=== PATIENT | female | born 1985 | race African-American/Black ===

== ENCOUNTER 2016-08-18 02:42 | Emergency (ER) | payer OTHER ==
[2016-08-18 03:45] VITALS: BP 128/85; PULSE 71; TEMP 97.9; BMI 37.9
[2016-08-18] MEDS ORDERED: ACETAMINOPHEN/CAFFEINE/BUTALBITAL 1 TAB PO ONE (04:05)
[2016-08-18] MEDS ORDERED: METOCLOPRAMIDE HCL 10 MG TABLET (FP) PO ONE ×2 (04:05→04:14)
[2016-08-18] MEDS ORDERED: ACETAMINOPHEN/CAFFEINE/BUTALBITAL 1 TAB ONE (04:13)
--- NOTE | 2016-08-18 04:25 | PDOC ---
[id number] 100 08/18/16 03:42 08/18/16 03:42 08/18/16 03:42 08/18/16 03:42 08/18/16 03:42 Medical Decision Making - Medical Decision Making 08/18/16 04:25 agree with care from RECORD LABEL INTERN Hussein *DC/Admit/Observation/Transfer Diagnosis at time of Disposition: Migraine - Discharge Dispostion Disposition: HOME Condition at time of disposition: Good - Prescriptions Prescriptions: Butalb/Acetaminophen/Caffeine [Fioricet 50-300-40 mg Capsule] 1 - 2 each PO Q4H PRN #30 capsule PRN Reason: SEVERE HEADACHE - Referrals Referrals: Sharon Dominguez [Primary Care Provider] - - Patient Instructions Printed Discharge Instructions: Migraine -- Adult Additional Instructions: FOLLOW UP WITH YOUR PRIMARY CARE PROVIDER FOR FURTHER EVALUATION. YOU SHOULD SEE A NEUROLOGIST AT SOME POINT FOR YOUR SYMPTOMS RELATED TO YOUR HISTORY OF TRAUMA. TAKE MEDICATIONS PRESCRIBED. RETURN IF SYMPTOMS WORSEN FOR FURTHER EVALUATION. Print Language: GIBRALTARIAN
--- NOTE | 2016-08-18 04:49 | PDOC ---
History of Present Illness - General Chief Complaint: Migraine Headache Stated Complaint: NECK PAIN Time Seen by Provider: 08/18/16 03:34 History Source: Patient Exam Limitations: No Limitations - History of Present Illness Initial Comments: 08/18/16 04:44 31yo Female patient presents to ED c/o migraine h/a 05/08. Patient reports history of recurrent h/a. She reports being evaluated and treated at [facility] earlier yesterday and given inj of Toradol. She reports she was also seen there the day before yesterday for same complaints. Denies n/v/d, fever, cough, congestion, neck pain, CP, Abd pain, Back pain, diff breathing, or any other complaints at this time. Timing/Duration: reports: other (2 days.) Severity: Yes: severe Episode Description: Associated photophobia. Associated Symptoms: denies: denies symptoms, confusion, fatigue, fever/chills, insomnia, loss of consciousness, muscle spasms, nausea/vomiting, numbness in legs/feet, paresthesia, ringing in ears, seizures, sleepy, slurred speech, tingling in legs/feet, trouble walking, vision changes, weakness, other Past History - Travel Traveled outside of the country in the last 30 days: No Close contact w/someone who was outside of country & ill: No - Past Medical History Allergies/Adverse Reactions: Allergies Allergy/AdvReac Type Severity Reaction Status Date / Time No Known Allergies Allergy Verified 08/18/16 03:44 Home Medications: Ambulatory Orders Topiramate [Topiramate ER] 25 mg PO DAILY 03/08/16 Butalb/Acetaminophen/Caffeine [Fioricet 50-300-40 mg Capsule] 1 - 2 each PO Q4H PRN #30 capsule 08/18/16 Sertraline HCl [Zoloft] 25 mg PO DAILY 08/18/16 Psychiatric Problems: Yes (DEPRESSION,ANXIETY) Suicide Attempt (Hx): No - Psycho/Social/Smoking Cessation Hx Anxiety: No Suicidal Ideation: No Smoking History: Current some day smoker Have you smoked in the past 12 months: Yes Number of Cigarettes Smoked Daily: 4 Information on smoking cessation initiated: No 'Breaking Loose' booklet given: 03/08/16 Hx Alcohol Use: No Drug/Substance Use Hx: No Substance Use Type: None Neuro Specific PMHX - Complaint Specific PMHX Glaucoma: No Herniated Disk: No Laminectomy: No Migraine: Yes Multiple Sclerosis: No Neuropathy: No TIA: No Review of Systems - Review of Systems Constitutional: No: Chills, Fever, Malaise, Weakness HEENTM: No: Eye Pain, Blurred Vision, Double Vision, Nose Congestion Respiratory: No: Cough, Shortness of Breath, Wheezing Cardiac (ROS): No: Chest Pain, Palpitations, Chest Tightness ABD/GI: No: Diarrhea, Nausea, Poor Appetite, Poor Fluid Intake, Vomiting : No: Dysuria, Discharge, Frequency, Hematuria, Pain, Urgency Musculoskeletal: No: Back Pain Integumentary: No: Bruising, Rash Neurological: Yes: Headache. No: Numbness, Paresthesia, Seizure, Tingling, Tremors, Weakness, Ataxia *Physical Exam - Vital Signs Last Vital Signs Temp Pulse Resp BP Pulse Ox 97.9 F 71 14 128/85 100 08/18/16 03:42 08/18/16 03:42 08/18/16 03:42 08/18/16 03:42 08/18/16 03:42 - Physical Exam General Appearance: Yes: Nourished, Appropriately Dressed. No: Apparent Distress, Mild Distress, Moderate Distress, Severe Distress HEENT: positive: EOMI, DELMA, Normal ENT Inspection, Normal Voice, Symmetrical, TMs Normal, Pharynx Normal. negative: Nasal Congestion, Rhinorrhea, TM Bulging , TM Dull, TM Erythema Neck: positive: Trachea midline, Supple. negative: Stridor, Lymphadenopathy (R) , Lymphadenopathy (L) Respiratory/Chest: positive: Lungs Clear, Normal Breath Sounds. negative: Respiratory Distress, Accessory Muscle Use, Labored Respiration, Rapid RR Cardiovascular: positive: Regular Rhythm, Regular Rate. negative: Edema, JVD, Murmur Gastrointestinal/Abdominal: positive: Normal Bowel Sounds, Soft. negative: Distended, Guarding, Rebound, Tenderness Lymphatic: negative: Adenopathy Musculoskeletal: positive: Normal Inspection. negative: CVA Tenderness Extremity: positive: Normal Capillary Refill, Normal Inspection, Normal Range of Motion. 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, Fully Oriented, Alert, Normal Mood/ Affect, Normal Response, Motor Strength 5/5 *DC/Admit/Observation/Transfer Diagnosis at time of Disposition: Migraine headache Qualifiers: Migraine type: without aura Status migrainosus presence: without status migrainosus Intractability: not intractable Qualified Code(s): G43.009 - Migraine without aura, not intractable, without status migrainosus - Discharge Dispostion Disposition: HOME Condition at time of disposition: Good Admit: No - Prescriptions Prescriptions: Butalb/Acetaminophen/Caffeine [Fioricet 50-300-40 mg Capsule] 1 - 2 each PO Q4H PRN #30 capsule PRN Reason: SEVERE HEADACHE - Patient Instructions Printed Discharge Instructions: Migraine -- Adult Additional Instructions: FOLLOW UP WITH YOUR PRIMARY CARE PROVIDER FOR FURTHER EVALUATION. YOU SHOULD SEE A NEUROLOGIST AT SOME POINT FOR YOUR SYMPTOMS RELATED TO YOUR HISTORY OF TRAUMA. TAKE MEDICATIONS PRESCRIBED. RETURN IF SYMPTOMS WORSEN FOR FURTHER EVALUATION. Print Language: GERMAN
== END 2016-08-18 06:01 | disposition home or self-care (01) ==
LOC: JER 02:42
DX: G43.009 Migraine without aura, not intractable, without status migrainosus (principal); F41.8 Other specified anxiety disorders; F17.210 Nicotine dependence, cigarettes, uncomplicated
CPT/HCPCS: 99282-25

== ENCOUNTER 2017-02-04 21:41 | Emergency (ER) | payer OTHER ==
[2017-02-04 21:52] VITALS: BMI 36.6
--- NOTE | 2017-02-04 22:16 | PDOC ---
History of Present Illness - General History Source: Patient Exam Limitations: No Limitations - History of Present Illness Initial Comments: 02/04/17 22:15 Patient is a 31 year old female with medical history significant for HTN, depression, anxiety, LEDEZMA and dizziness presenting with various complaints regarding her brain burning and shifting and of having an abnormal taste she describes as pus coming from her brain. Also complains of hair loss and scabs forming on the back of her head from the pus leaking from her brain. Patient has had numerous visits to the ED with similar complaints with normal CT scans. She claims she presented to a hospital in [place] 1 week ago and had a normal CT and labwork. 02/04/17 23:17 <Bear Cruz - Last Filed: 02/04/17 23:55> <Maria Elena Dow - Last Filed: 02/05/17 06:00> - General Chief Complaint: Migraine Headache Stated Complaint: MIGRAINE HEADACHE Time Seen by Provider: 02/04/17 22:12 Past History - Past Medical History Psychiatric Problems: Yes (DEPRESSION,ANXIETY) Suicide Attempt (Hx): No - Psycho/Social/Smoking Cessation Hx Anxiety: No Suicidal Ideation: No Smoking History: Never smoked Have you smoked in the past 12 months: Yes Number of Cigarettes Smoked Daily: 3 'Breaking Loose' booklet given: 03/08/16 Hx Alcohol Use: No Drug/Substance Use Hx: No Substance Use Type: None <Bear Cruz - Last Filed: 02/04/17 23:55> <Maria Elena Dow - Last Filed: 02/05/17 06:00> - Past Medical History Allergies/Adverse Reactions: Allergies Allergy/AdvReac Type Severity Reaction Status Date / Time No Known Allergies Allergy Verified 02/04/17 21:52 Home Medications: Ambulatory Orders Topiramate [Topiramate ER] 25 mg PO DAILY 03/08/16 Butalb/Acetaminophen/Caffeine [Fioricet 50-300-40 mg Capsule] 1 - 2 each PO Q4H PRN #30 capsule 08/18/16 Sertraline HCl [Zoloft] 25 mg PO DAILY 08/18/16 *Physical Exam - Vital Signs Last Vital Signs Temp Pulse Resp BP Pulse Ox 98.3 F 79 18 111/76 99 02/04/17 21:47 02/04/17 21:47 02/04/17 21:47 02/04/17 21:47 02/04/17 21:47 - Physical Exam 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, Fully Oriented, Alert, Normal Mood/ Affect, Motor Strength 5/5, Finger to Nose (normal), Babinski (downward), Other (Brudzinski(-), Kernig(-), Rhomberg(-), Pronator drift(-)) Deep Tendon Reflexes: Knee (L): 2+, Knee (R): 2+, Bicep (L): 2+, Bicep (R): 2+, Tricep (L): 1+, Tricep (R): 2+ <Bear Cruz - Last Filed: 02/04/17 23:55> - Vital Signs Last Vital Signs Temp Pulse Resp BP Pulse Ox 98.3 F 79 18 111/76 99 02/04/17 21:47 02/04/17 21:47 02/04/17 21:47 02/04/17 21:47 02/04/17 23:13 <Maria Elena Dow - Last Filed: 02/05/17 06:00> ED Treatment Course - LABORATORY CBC & Chemistry Diagram: 02/04/17 23:15 02/04/17 23:15 <Bear Cruz - Last Filed: 02/04/17 23:55> - LABORATORY CBC & Chemistry Diagram: 02/04/17 23:15 02/04/17 23:15 - ADDITIONAL ORDERS Additional order review: Laboratory Results 02/05/17 02/04/17 00:20 23:15 Sodium 138 Potassium 3.5 Chloride 102 Carbon Dioxide 23 Anion Gap 13 BUN 5 L D Creatinine 0.7 D Creat Clearance w eGFR > 60 Random Glucose 80 Calcium 8.9 Total Bilirubin 0.4 AST 15 D ALT 18 Alkaline Phosphatase 78 Total Protein 7.9 Albumin 4.0 Urine HCG, Qual Negative 02/04/17 23:15 RBC 4.13 MCV 90.1 MCHC 33.6 RDW 13.1 D MPV 9.4 Neutrophils % 41.8 L Lymphocytes % 46.4 H Monocytes % 10.5 H Eosinophils % 0.8 Basophils % 0.5 - RADIOLOGY Radiology Studies Ordered: Category Date Time Status SINUS CT W/O CONTRAST [CT] Stat CT Scan 02/05/17 00:03 Taken <Maria Elena Dow - Last Filed: 02/05/17 06:00> Medical Decision Making - Medical Decision Making 02/04/17 23:20 Patient presents with various neurological complaints and a long history of similar complaints at multiple hospitals with negative workups. No neurological deficits on physical exam. No recent labs at this hospital. Ddx: conversion disorder, other psychiatric disorder, sinusitis, infection Check standard labs, CT of sinuses. Patient is afebrile with a normal BP. Denied neck stiffness. Negative Babinski, Romberg, Kernig, Brudzinski. 02/04/17 23:55 Signed out patient to Dr. Crockett <Bear Cruz - Last Filed: 02/04/17 23:55> - Medical Decision Making 02/05/17 03:12 Patient Name: Ramya Esqueda THIS IS A PRELIMINARYREPORT FROM [facility] OPERATOR EXAM: CT facial bones without contrast IMAGES: 607 INDICATION: Rule out sinusitis DATE OF SERVICE: 2017-02-05 00:26:44.0 COMPARISON: none FINDINGS: The intraorbital contents are intact. The sinuses and mastoid air cells are well aerated other than a left maxillary sinus retention cyst or polyp. There is a fracture of the right lamina papyracea, suspected to be old, with herniation of fat only.. IMPRESSION: No evidence of sinusitis. Left maxillary sinus retention cyst or polyp is likely incidental finding. Probable old fracture of the left lamina papyracea. THIS DOCUMENT HAS BEEN ELECTRONICALLY SIGNED 02/05/17 05:59 Pt will be signed out to the day team. Her labs are normal and her CT scans are normal <Maria Elena Dow - Last Filed: 02/05/17 06:00> *DC/Admit/Observation/Transfer - Attestations Physician Attestion: 02/04/17 23:57 I, Dr. Bear Cruz, attest that this document has been prepared under my direction and personally reviewed by me in its entirety. I further attest, that it accurately reflects all work, treatment, procedures and medical decision -making performed by me. <Bear Cruz - Last Filed: 02/04/17 23:55> - Discharge Dispostion Admit: No <Maria Elena Dow - Last Filed: 02/05/17 06:00> Diagnosis at time of Disposition: Taste sense altered, Paranoia - Discharge Dispostion Condition at time of disposition: Stable - Referrals Referrals: Sharon Dominguez [Primary Care Provider] - Gavin Rush MD [Staff Physician] - - Patient Instructions Printed Discharge Instructions: Taste and Smell Disorders Print Language: SINHALA
[2017-02-04 23:23] LABS: BASOPHIL 0.5 % (0-2.0); EOSINOPHIL 0.8 % (0-4.5); MCH 30.3 pg (25.7-33.7); MCHC 33.6 g/dl (32.0-36.0); MEAN CELL VOLUME 90.1 fl (80-96); MEAN PLT VOLUME 9.4 fl (7.5-11.1); NEUTROPHILS 41.8 % (42.8-82.8); PLATELET COUNT 198 K/MM3 (134-434); RDW 13.1 % (11.6-15.6)
[2017-02-05 00:06] LABS: ANION GAP 13 (8-16); BILIRUBIN,TOTAL 0.4 mg/dL (0.2-1.0); CALCIUM 8.9 mg/dL (8.5-10.1); CO2 23 mmol/L (21-32); CREATININE 0.7 mg/dL (0.55-1.02); GLUCOSE,RANDOM 80 mg/dL (74-106); SGOT/AST 15 U/L (15-37); SGPT/ALT 18 U/L (12-78); TOT PROT 7.9 g/dl (6.4-8.2)
[2017-02-05 00:07] LABS: ALK PHOS 78 U/L (45-117)
--- NOTE | 2017-02-05 00:18 | PDOC ---
*Physical Exam - Vital Signs Last Vital Signs Temp Pulse Resp BP Pulse Ox 98.3 F 79 18 111/76 99 02/04/17 21:47 02/04/17 21:47 02/04/17 21:47 02/04/17 21:47 02/04/17 23:13 - Physical Exam Comments: 02/05/17 04:06 GENERAL: Awake, alert, and fully oriented, in no acute distress HEAD: No signs of trauma, normocephalic, atraumatic EYES: PERRLA, EOMI, sclera anicteric, conjunctiva clear ENT: Auricles normal inspection, hearing grossly normal, nares patent, oropharynx clear without exudates. Moist mucosa NECK: Normal ROM, supple, no lymphadenopathy, JVD, or masses LUNGS: No distress, speaks full sentences, clear to auscultation bilaterally HEART: Regular rate and rhythm, normal S1 and S2, no murmurs, rubs or gallops, peripheral pulses normal and equal bilaterally. ABDOMEN: Soft, nontender, normoactive bowel sounds. No guarding, no rebound. No masses EXTREMITIES: Normal inspection, Normal range of motion, no edema. No clubbing or cyanosis. NEUROLOGICAL: Cranial nerves II through XII grossly intact. Normal speech, normal gait, no focal sensorimotor deficits SKIN: Warm, Dry, normal turgor, no rashes or lesions noted. ED Treatment Course - LABORATORY CBC & Chemistry Diagram: 02/04/17 23:15 02/04/17 23:15 Progress Note - Progress Note Progress Note: Ms. Esqueda is a 31 yo female with h/o HTN, depression, and anxiety who presents with complaint of abnormal taste. She reports being able to taste pus in her brain. She has had recurrent ED visits fir complaint of abnormal taste, for which she believes to be "brain leaking." She has refused to follow up with psychiatry in the past because she believes her illness can only be managed medically. She has requested antibiotics repeatedly to counter the "infection in her brain." Has had unremarkable head CT scans in the past and is currently asymptomatic. Denies dizziness, vision changes, LEDEZMA, hearing loss, numbness/ tingling, or wobbly gait. Medical Decision Making - Medical Decision Making 02/05/17 04:20 Ms. Esqueda is a 31 yo F who presents with complaint of abnormal taste. She is concerned that her brain is leaking pus and has had multiple visits in the past for the same complaint. She is asymptomatic and has no neruological deficits. Despite multiple negative head CT scans and neurology workups in the past she continues to be adamant about having a medical condition that has caused her to leak pus from her brain. She believes that she has a " brain infection" and persists that she must receive antibiotics to cure her illness. She has had no prior formal psychiatric evaluation, but displays attitudes and beliefs that are consistent with a shcitzoaffective or schizophrenic spectrum disorder. In addition to olfactory hallucinations she believes that the staff are conspiring against her and working with the government. 02/05/17 04:[address] sinus without contrast CMP, CBC unremarkable 02/05/17 04:28 1000ml Nacl *DC/Admit/Observation/Transfer Diagnosis at time of Disposition: Taste sense altered - Discharge Dispostion Disposition: HOME Condition at time of disposition: Stable - Referrals Referrals: Gavin Rush MD [Staff Physician] - Sharon Dominguez [Primary Care Provider] - - Patient Instructions Printed Discharge Instructions: Taste and Smell Disorders Print Language: FAROESE
[2017-02-05] MEDS ORDERED: SODIUM CHLORIDE 1,000 ML IV STA (03:28)
--- NOTE | 2017-02-05 06:07 | PDOC ---
Attending Attestation - Resident Resident Name: NancyBear - HPI HPI: 02/05/17 06:04 Pt comes with complaint of "brain shifting" feeling that she has meat in her head and infection and taste of blood and pus. SHe was in [facility] last week; ct head was normal at that time. Vitals are stable today and she is in no distress. - Physicial Exam PE: 02/05/17 06:06 normal exam - Medical Decision Making 02/05/17 06:06 CT sinuses and mastoid normal; labs normal. Pt will be signed out to the day team for psychiatric evaluation in the AM.
--- NOTE | 2017-02-05 07:44 | PDOC ---
*Physical Exam - Vital Signs Last Vital Signs Temp Pulse Resp BP Pulse Ox 98.5 F 65 18 110/74 98 02/05/17 06:45 02/05/17 06:45 02/05/17 06:45 02/05/17 06:45 02/05/17 06:45 ED Treatment Course - LABORATORY CBC & Chemistry Diagram: 02/04/17 23:15 02/04/17 23:15 - ADDITIONAL ORDERS Additional order review: Laboratory Results 02/05/17 02/04/17 00:20 23:15 Sodium 138 Potassium 3.5 Chloride 102 Carbon Dioxide 23 Anion Gap 13 BUN 5 L D Creatinine 0.7 D Creat Clearance w eGFR > 60 Random Glucose 80 Calcium 8.9 Total Bilirubin 0.4 AST 15 D ALT 18 Alkaline Phosphatase 78 Total Protein 7.9 Albumin 4.0 Urine HCG, Qual Negative 02/04/17 23:15 RBC 4.13 MCV 90.1 MCHC 33.6 RDW 13.1 D MPV 9.4 Neutrophils % 41.8 L Lymphocytes % 46.4 H Monocytes % 10.5 H Eosinophils % 0.8 Basophils % 0.5 - Medications Given in the ED: ED Medications Discontinued Medications Generic Name Dose Route Start Last Admin Trade Name Freq PRN Reason Stop Dose Admin Sodium Chloride 1,000 mls @ 1,000 mls/hr 02/05/17 03:28 02/05/17 04:23 Normal Saline - IV 02/05/17 04:27 1,000 mls/hr ASDIR STA Administration Medical Decision Making - Medical Decision Making 02/05/17 07:46 Discussion with patient at bedside. She is AAOx3, stating that since she took topamax and one of the generic forms for her chronic migraines, she has had unusual feeling. She states that her brain feels like "raw meat" and like it is shifting around. She denies any pain at present. No weakness, numbness. She states that she has not felt like herself since being on that medication. She has stopped it on her own and has not followed up with the neurologist since then. She has, however, been seeing a therapist as an outpatient, who has recommended that she should see a psychiatrist. She endorses concern about being placed on psychiatric medication, however, she will continue to follow- up. She is not having any hallucinations, and does not represent any danger to herself or others. She does not require psychiatric evaluation emergently. Stable for DC. *DC/Admit/Observation/Transfer Diagnosis at time of Disposition: Taste sense altered, Paranoia - Discharge Dispostion Disposition: HOME Condition at time of disposition: Stable Admit: No - Referrals Referrals: Gavin Rush MD [Staff Physician] - Sharon Dominguez [Primary Care Provider] - - Patient Instructions Printed Discharge Instructions: Taste and Smell Disorders Print Language: MAURITANIAN - Post Discharge Activity
[2017-02-05 08:11] VITALS: BP 108/68; PULSE 82; TEMP 98.4
== END 2017-02-05 07:40 | disposition home or self-care (01) ==
LOC: JER 21:41
PROC: 3E0337Z Introduction of Electrolytic and Water Balance Substance into Peripheral Vein, Percutaneous Approach (ICD-10-PCS; principal; 2017-02-04)
DX: R43.8 Other disturbances of smell and taste (principal); F22 Delusional disorders; I10 Essential (primary) hypertension; F31.9 Bipolar disorder, unspecified; F41.9 Anxiety disorder, unspecified
CPT/HCPCS: 36415; 70486-TC; 80053; 84703; 85025; 96360; 99283-25

== ENCOUNTER 2017-04-27 15:05 | Emergency (ER) | payer OTHER ==
[2017-04-27 15:18] VITALS: BMI 33.3
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
[2017-04-27 16:58] LABS: BASOPHIL 0.5 % (0-2.0); EOSINOPHIL 0.2 % (0-4.5); MCH 31.4 pg (25.7-33.7); MCHC 34.1 g/dl (32.0-36.0); MEAN CELL VOLUME 91.9 fl (80-96); MEAN PLT VOLUME 9.6 fl (7.5-11.1); NEUTROPHILS 47.8 % (42.8-82.8); PLATELET COUNT 243 K/MM3 (134-434); RDW 13.5 % (11.6-15.6); WHITE BLOOD COUNT 4.5 K/mm3 (4.0-10.0)
[2017-04-27 17:15] LABS: URINE APPEARANCE CLEAR; URINE BILIRUBIN NEGATIVE (NEGATIVE); URINE BLOOD 1+ (NEGATIVE); URINE COLOR LTYELLOW; URINE GLUCOSE (UA) NEGATIVE (NEGATIVE); URINE KETONE 2+ (NEGATIVE); URINE LEUK ESTERASE NEGATIVE (NEGATIVE); URINE NITRITE NEGATIVE (NEGATIVE); URINE PROTEIN NEGATIVE (NEGATIVE); URINE UROBILINOGEN NEGATIVE mg/dL (0.2-1.0)
[2017-04-27 17:31] LABS: ANION GAP 9 (8-16); BILIRUBIN,TOTAL 0.8 mg/dL (0.2-1.0); CO2 25 mmol/L (21-32); CREATININE 0.6 mg/dL (0.55-1.02); GLUCOSE,RANDOM 63 mg/dL (74-106); SGOT/AST 14 U/L (15-37); SGPT/ALT 18 U/L (12-78); TOT PROT 8.1 g/dl (6.4-8.2)
[2017-04-27 17:34] LABS: URINE MUCUS RARE; URINE RBC 1 /hpf (0-3); URINE WBC <1 /hpf (3-5)
[2017-04-27 17:36] LABS: URINE MARIJUANA THC NEGATIVE ng/ml (CUTOFF=50)
[2017-04-27 17:39] LABS: ALK PHOS 72 U/L (45-117); THYROID STIMULATING HORMONE 1.71 uIU/ml (0.358-3.74)
[2017-04-27 21:30] VITALS: BP 120/82; PULSE 82; TEMP 98
== END 2017-04-27 21:30 | disposition home or self-care (01) ==
LOC: JER 15:05
DX: F06.4 Anxiety disorder due to known physiological condition (principal); F41.8 Other specified anxiety disorders; F43.10 Post-traumatic stress disorder, unspecified; G43.909 Migraine, unspecified, not intractable, without status migrainosus; F17.210 Nicotine dependence, cigarettes, uncomplicated
CPT/HCPCS: 36415; 70450-TC; 80053; 80307; 81003; 81015; 84443; 84703; 85025; 99283-25

== ENCOUNTER 2020-05-19 23:02 | Emergency (ER) | payer OTHER ==
[2020-05-19 23:05] VITALS: BP 142/98; PULSE 94; BMI 25.0
[2020-05-19 23:09] VITALS: TEMP 98.3
--- OUTSIDE RECORDS SUMMARY | 2020-05-19 23:15 | XMS ---
:1985 [facility] Providers Name Role Phone Trina Squires Unavailable OYEKOLA CRAWLER CRANE OPERATOR, MOBOLAJI Unavailable OYEKOLA CRAWLER CRANE OPERATOR, MOBOLAJI Unavailable OYEKOLA CRAWLER CRANE OPERATOR, MOBOLAJI Unavailable OYEKOLA CRAWLER CRANE OPERATOR, MOBOLAJI Unavailable AGYEPONG CRAWLER CRANE OPERATOR, ZINA Unavailable AGYEPONG CRAWLER CRANE OPERATOR, ZINA Unavailable JOANIE OLIVARES Unavailable Unavailable Kris Clark Unavailable Unavailable TaBailey rosen Unavailable Unavailable TaBailey rosen Unavailable Unavailable Bailey Clark Unavailable Unavailable Bailey Clark Unavailable Unavailable MD TONY Unavailable Unavailable MD TONY Unavailable Unavailable MD TONY Unavailable Unavailable MD TONY Unavailable Unavailable MD TONY Unavailable Unavailable MD TONY Unavailable Unavailable MD TONY Unavailable Unavailable MD TONY Unavailable Unavailable MD TONY Unavailable Unavailable MD TONY Unavailable Unavailable MD TONY Unavailable Unavailable ED STAFF PHYSICIAN Unavailable Unavailable ACHALLA, PMHNP Unavailable Unavailable ROBBY BASILIO Unavailable Unavailable [id number] Unavailable Unavailable MICAH CNM Unavailable MICAH CNM Unavailable MICAH CNM Unavailable ED STAFF PHYSICIAN Unavailable Unavailable BOOTHE Unavailable Unavailable MICAH LEDY Unavailable Unavailable FAHNRICH HILDA C Unavailable Unavailable MD FIDEL Unavailable Unavailable ROSA Unavailable Unavailable Khang Unavailable [phone] ANASTASIA BANERJEE Unavailable Unavailable ED STAFF PHYSICIAN Unavailable Unavailable Dang Unavailable Unavailable Dang Unavailable Unavailable Dang Unavailable Unavailable BERLIS Unavailable Unavailable Amelmah Unavailable Unavailable Amelmah Unavailable Unavailable Amelmah Unavailable Unavailable Amelmah Unavailable Unavailable BRADY CRAWLER CRANE OPERATOR Unavailable BRADY CRAWLER CRANE OPERATOR Unavailable BRADY CRAWLER CRANE OPERATOR Unavailable Rebecca-Ortega Unavailable [phone] Rebecca-Ortega Unavailable [phone] Katie BUSTAMANTE Unavailable Unavailable MD CUATE Unavailable Unavailable MD CANDY Unavailable Unavailable [place], C Unavailable Unavailable [place], C Unavailable Unavailable Anders, C Unavailable Unavailable [place], C Unavailable Unavailable [facility] Unavailable Unavailable PONCE DEEBA TAHER Unavailable Unavailable Brandon MARINE STRUCTURAL DESIGNER Unavailable Unavailable Zia Unavailable Unavailable Zia Unavailable Unavailable SUZETTE Unavailable Unavailable ZUNASSIGNED Unavailable Unavailable DYLON BAIN Unavailable Unavailable [facility] Unavailable Re-disclosure Warning The records that you are about to access may contain information from federally- assisted alcohol or drug abuse programs. If such information is present, then the following federally mandated warning applies: This information has been disclosed to you from records protected by federal confidentiality rules (42 CFR part 2). The federal rules prohibit you from making any further disclosure of this information unless further disclosure is expressly permitted by the written consent of the person to whom it pertains or as otherwise permitted by 42 CFR part 2. A general authorization for the release of medical or other information is NOT sufficient for this purpose. The Federal rules restrict any use of the information to criminally investigate or prosecute any alcohol or drug abuse patient.The records that you are about to access may contain highly sensitive health information, the redisclosure of which is protected by Article 27-F of the [facility] Public Health law. If you continue you may haveaccess to information: Regarding HIV / AIDS; Provided by facilities licensed or operated by the [facility] Office of Mental Health; or Provided by the [facility] Office for People With Developmental Disabilities. If such information is present, then the following [facility] mandated warning applies: This information has been disclosed to you from confidential records which are protected by state law. State law prohibits you from making any further disclosure of this information without the specific written consent of the person to whom it pertains, or as otherwise permitted by law. Any unauthorized further disclosure in violation of state law may result in a fine or senior care sentence or both. A general authorization for the release of medical or other information is NOT sufficient authorization for further disclosure. Allergies and Adverse Reactions Type Description Substance Reaction Status Data Source(s ) guadalupe butcher Unknown Active eCW2 (Planned interpermax interpermax interpermax [facility] [employer]) Encounters Encounter Providers Location Date Indications Data Source(s ) Outpatient Attender: PMH9 05/03/2020 [facility] 03:38:52 [facility] EDT Patient admitted. [facility]patient [facility] 05/03/2020 eCW2 ( Planned [place] 12:00:00 AM EDT [facility] [employer]) Outpatient Attender: ST 04/30/2020 [facility] LISSA 01:36:00 PM EDT Hospital ACHALLAAdmitter: REMBERTO BOOTHE Inpatient Attender: JU WOLF2S 04/23/2020 [facility] DAVIDdmitter: 05:16:00 PM EDT - [facility] Lexus Mcnamara 04/27/2020 10:19:00 PM EDT Patient discharged. Outpatient [facility] 04/23/2020 04:40:00 PM EDT - 020 [facility] 06:10:00 PM EDT Patient discharged. Emergency Attender: ED STAFF H 04/23/2020 09:29:00 AM [facility] PHYSICIANAttender: STAFF ED EDT - 04/23/2020 [facility] STAFF PHYSICIANAdmitter: ED 07:11:00 PM EDT STAFF PHYSICIANReferrer: ZUNASSIGNED Patient discharged. Emergency Attender: ED STAFF H 04/21/2020 11:04:00 AM Pam PHYSICIANAttender: STAFF ED EDT - 04/21/2020 Medical Center STAFF PHYSICIANAdmitter: ED 03:22:00 PM EDT STAFF PHYSICIANReferrer: ZUNASSIGNED Patient discharged. Attender: [facility] 03/09/2020 03:50:00 NEXTGEN ([facility] PM EDT - 03/09/2020 [facility] 03:50:00 PM EDT Center) Attender: [facility] 03/08/2020 09:46:00 NEXTGEN ([facility] AM EDT - 03/08/2020 [facility] 09:46:00 AM EDT Center) Outpatient Attender: PM 02/28/2020 11:24:41 G SI ([facility] AM EDT [facility]) Patient admitted. Outpatient<td Attender: Mayda 01/22/2020 MARTA ID="encounterTypeDescriptionID0">*OUTREACH*</td><td>[facility] 11:18:00 AM ([facility]</td><td>[facility] ED T - Neighborhood Center</td><td>01/22/2020</td><td></td> CRAWLER CRANE OPERATOR Center [address] [place] [address] 11:59:00 PM Center) EDT Outpatient<td Attender: Mayda 01/19/2020 MARTA ID="encounterTypeDescriptionID1">EKG</td><td>[facility] 11:45:00 AM ([facility]</td><td>[facility] EDT - [facility] Center</td><td>01/19/2020</td><td></td> CRAWLER CRANE OPERATOR Center 020 Health 11:38:34 AM Center) EDT Outpatient<td ID="encounterTypeDescriptionID2">COMPLETE Attender : Mayad 01/19/2020 Chely HULL PHYSICAL EXAM</td><td>LEATHA MARTINEZ [facility]</td><td>[facility] 09:30:00 AM o ([facility]</td><td>01/19/2020</td><td><[facility] - u Neighborhood ID="encounterDiagnosisID2-0">Obesity Morbid</content>, CRAWLER CRANE OPERATOR [facility] 01/19/2020 t Health <content ID="encounterDiagnosisID2-1">Routine History and 11:22:46 AM i Center) Physical</content></td> EDT n e H i s t o r y a n d P h y s i c a l O b e s i t y M o r b i d R o u t i n e H i s t o r y a n d P h y s i c a l O b e s i t y M o r b i d Routine History and Physical Obesity Morbid Routine History and Physical Obesity Morbid Individual Attender: Mental 01/13/2020 [facility] 03:30:00 PM ( (30 Min) [facility] 01/13/2020 Medical 03:30:00 PM Center) EDT Individual Attender: [facility] 12/23/2019 [facility] 11:24:00 AM ( (30 Min) [facility] 12/23/2019 Medical 11:24:00 AM Center) EDT OutpatientOFFI Attender: Mental 12/18/2019 [facility] CE/OUTPATIENT [facility] 01:52:00 PM (ARCHANA Hull [facility] 12/18/2019 Medical 01:52:00 PM Center) EDT Attender: [facility] 12/18/2019 [facility] 01:05:00 PM ([facility] 12/18/2019 Medical 01:05:00 PM Center) EDT Individual Attender: [facility] 12/16/2019 [facility] 03:40:00 PM ([facility] (30 Min) [facility] EDT [facility] 12/16/2019 Medical 03:40:00 PM Center) EDT Individual Attender: Mental 12/02/2019 [facility] 10:42:00 AM ([facility] (30 Min) [facility] EDT [facility] 12/02/2019 Medical 10:42:00 AM Center) EDT OutpatientOFFI Attender: Mental 11/18/2019 [facility] CE/OUTPATIENT [facility] 02:05:00 PM ([facility] VISIT, ARCHANA Lizarraga MD [facility] EDT [facility] 11/18/2019 Medical 02:05:00 PM Center) EDT Attender: Mental 10/21/2019 [facility] 12:14:00 PM ([facility] EDT [facility] 10/21/2019 Medical 12:14:00 PM Center) EDT Attender: Mental 10/21/2019 [facility] 10:27:00 AM ([facility] EDT [facility] 10/21/2019 Medical 10:27:00 AM Center) EDT Outpatient<td Attender: Arlee 10/14/2019 Vitamin D HULL ID="encounterT [facility] 04:00:00 PM DeficiencySchizophre Tawny ([place] ypeDescription TONY FOX [facility] EDT - ity MorbidVitamin D N eighborhood ID3">[place]</ Center 10/14/2019 DeficiencySchizophren [facility] td><td>DUMONT 04:15:33 PM ity MorbidVitamin D Center) TONY EDT DeficiencySchizophreniaOb jeremi FOX</td><td>[facility] MorbidHyperprolactine [facility] erprolactinemiaHyperprola ks Center</td><td inemiaAnxiety Disorde r of >10/14/2019</t Unknown (axis Iii) d><td><content EtiologyAnxiety Disor [place] of ID="encounterD Unknown (axis Iii) iagnosisID3-0" EtiologyAnxiety Disor [place] of >Obesity Unknown (axis Iii) Etiolo gy Morbid</conten t>, <content ID="encounterD iagnosisID3-1" >Schizophrenia </content>, <content ID="encounterD iagnosisID3-2" >Anxiety Disorder of Unknown (axis Iii) Etiology</cont ent>, <content ID="encounterD iagnosisID3-3" >Vitamin D Deficiency</co ntent>, <content ID="encounterD iagnosisID3-4" >Hyperprolacti nemia</content ></td> Vitamin D Deficiency Schizophrenia Obesity Morbid Vitamin D Deficiency Schizophrenia Obesity Morbid Vitamin D Deficiency Schizophrenia Obesity Morbid Hyperprolactinemia Hyperprolactinemia Hyperprolactinemia Anxiety Disorder of Unknown (axis Iii) E tiology Anxiety Disorder of Unknown (axis Iii) E tiology Anxiety Disorder of Unknown (axis Iii) E tiology Attender: Mental 10/14/2019 [facility] 02:46:00 PM [facility] 10/14/2019 Medical 02:46:00 PM Center) EDT Outpatient Attender: Arlee 10/14/2019 [facility] 01:00:00 PM ([place] ID="[facility] EDT - [facility] 10/14/2019 Health criptionID 03:57:06 PM Center) 4">RETIREMENT BENEFITS SPECIALIST EDT OV</td><td >WERO HDZ MD</td><td >[facility]</td ><td>10/13</td> <td></td> Attender: Mental 10/08/2019 [facility] 03:45:00 PM ([facility] 10/08/2019 Medical 03:45:00 PM Center) EDT Outpatient Attender: Arlee 10/08/2019 LeukopeniaBackacheSchizop [facility] ED <td [facility] 03:00:00 PM LeukopeniaBackacheSchizo phrenia ([place] ID="[facility] EDT - LeukopeniaBackacheSchizop [facility] 10/08/2019 LeukopeniaBackacheSchizop hrenia Health criptionID 04:09:18 PM LeukopeniaBackacheSchizo phrenia Center) 5">OFFICE EDT CervicalgiaCervicalgiaCer vicalg VISIT</td> iaCervicalgiaCervicalgia <td>CHASITY ABREU CRAWLER CRANE OPERATOR</td><t d>[facility]</td ><td>10/07</td> <td><mili nt ID="encoun terDiagnos isID5-0">C ervicalgia </content> , <content ID="encoun terDiagnos isID5-1">S chizophren ia</conten t>, <content ID="encoun terDiagnos isID5-2">B ackache</c ontent>, <content ID="encoun terDiagnos isID5-3">L eukopenia< /content>< /td> Leukopenia Backache Schizophrenia Leukopenia Backache Schizophrenia Leukopenia Backache Schizophrenia Leukopenia Backache Schizophrenia Leukopenia Backache Schizophrenia Cervicalgia Cervicalgia Cervicalgia Cervicalgia Cervicalgia Individual Attender: [facility] 10/01/2019 DAY N ([facility] Psychotherapy (45 [facility] 02:51:00 PM EST - Pam Min) 10/01/2019 Medical 02:51:00 PM EST Center) OutpatientOFFICE/OUTP Attender: [facility] 09/25/2019 ELIDA ([facility] ATIENT VISIT, EST [facility] 06:05:00 PM EST - Pam 09/25/2019 Medical 06:05:00 PM EST Center) Individual Attender: [facility] 09/25/2019 DAY N ([facility] Psychotherapy ([facility] 12:52:00 PM EST - Pam Min) 09/25/2019 Medical 12:52:00 PM EST Center) Initial Eval W/ Med Attender: [facility] 09/18/2019 ANITAGEN ([facility] 02:12:00 PM EST - Pam 09/18/2019 Medical 02:12:00 PM EST Center) Individual Attender: [facility] 09/18/2019 BRUCE EN ([facility] Psychotherapy (30 [facility] 02:12:00 PM EST - Pam Min) 09/18/2019 Medical 02:12:00 PM EST Center) Attender: [facility] 09/18/2019 ELIDA ([facility] 01:46:00 PM EST - Pamjoanna De Jesusr-Jordan 09/18/2019 Medical 01:46:00 PM EST Center) Outpatient Attender: PMH9 09/16/2019 GSI ([facility] 11:52:03 AM EST [facility]) Patient admitted. Individual Attender: Mental Health 09/09/2019 NEXTGEN (Sa int Psych[facility] 09:07:00 AM Pam (45 Min) Khang EST - Medical 09/09/2019 [place]) 09:07:00 AM EST Outpatient<td Attender: [place] 09/05/2019 MARTA ID="encounterTyp [facility] 02:00:00 PM ( [place] eDescriptionID6" [facility] EST - Neigh borhood >[place]</td><td 09/05/2019 Health C enter) >[facility] 02:05:20 PM MD</td><td>[facility]</td><td>0 09/05/2019</td><t d></td> Psychiatric Attender: Mental Health 09/03/2019 [facility] (S aint Diagnostic [facility] 10:46:00 AM Pam Interview (45+ Khang EST - Medical Min) 09/03/2019 [place]) 10:46:00 AM EST Outpatient Attender: H 09/03/2019 [facility] 10:05:00 AM Medical C enter JOANIE MAGAÑA MAttender: LAVONNE HENRYdmitter : JOANIE Randolph Attender: Mental Health 09/03/2019 [facility] (Sa int [facility] 10:05:00 AM Pam Quiñonez EST - Medical 09/03/2019 [place]) 10:05:00 AM EST 09/03/2019 [facility] 12:00:00 AM Medical Cente r EST - 09/12/2017 12:00:00 AM EST Outpatient<td Attender: Mayda 09/02/2019 Assessment MARTA ID="encounterTyp [facility] 01:30:00 PM [use For ([facility] eDescriptionID7" [facility] EST - S.o.a.p. Note Ne ighborhood >RETIREMENT BENEFITS SPECIALIST 09/02/2019 [facility]) OV</td><td>VANESA 01:52:54 PM Text]Assessme D AMELEMAH EST nt [use For </td><td>Amanuel S.o.a.p. Note [facility] Free Health Text]Assessme Center</td><td>0 nt [use For 09/02/2019</td><t S.o.a.p. Note d><content Free ID="encounterDia Text]Assessme gnosisID7-0">Ass nt [use For essment [use For S.o.a.p. Note S.o.a.p. Note Free Free Text]Assessme Text]</content>< nt [use For /td> S.o.a.p. Note Free Text]Assessme nt [use For S.o.a.p. Note Free Text] Assessment [use For S.o.a.p. Note Free T ext] Assessment [use For S.o.a.p. Note Free T ext] Assessment [use For S.o.a.p. Note Free T ext] Assessment [use For S.o.a.p. Note Free T ext] Assessment [use For S.o.a.p. Note Free T ext] Assessment [use For S.o.a.p. Note Free T ext] Outpatient<td Attender: Mayda 09/02/2019 Vitamin D Defi ciencyVitamin D DeficiencyVitamin D DeficiencyVitamin D HULL ID="encounterTypeDescriptionID8">[place]</td><td>[facility] 11:00:00 AM DeficiencyVitamin D DeficiencyVitamin D DeficiencyVita min D ([place] TONY FOX</td><td>[facility] TONY FOX Health E ST - DeficiencyObesityObesityObesityObesityObesityObesityObesityPostconcussion [facility]</td><td>09/02/2019</td><td><[facility] 09/02/2019 SyndromePostconcussion SyndromePostconcussion SyndromePostconcussion Health ID="encounterDiagnosisID8-0">Obesity</content>, <content 11:47:39 AM SyndromePostconcussion SyndromePostconcussion SyndromePostconcussion Center) ID="encounterDiagnosisID8-1">Vitamin D EST Syndrome Deficiency</content>, <content ID="encounterDiagnosisID8-2">Postconcussion Syndrome</content></td> Vitamin D Deficiency Vitamin D Deficiency Vitamin D Deficiency Vitamin D Deficiency Vitamin D Deficiency Vitamin D Deficiency Vitamin D Deficiency Obesity Obesity Obesity Obesity Obesity Obesity Obesity Postconcussion Syndrome Postconcussion Syndrome Postconcussion Syndrome Postconcussion Syndrome Postconcussion Syndrome Postconcussion Syndrome Postconcussion Syndrome Outpatient<td Attender: Arlee 09/02/2019 HULL ID="encounterTypeDescriptionID9">*OUTREACH*</td><td>CHASITY [facility] 09:46:00 AM ([facility]</td><td>[facility]</td><td>09/02/2019</td><td></td> [facility] Health 11:59:00 PM Center) EST Outpatient<td Attender: 08/29/2019 HULL ID="[id number]">*OUTREACH*</td><td>ZINA IZAGUIRRE 01:30:00 PM ([place] [facility]</td><td> [facility] </td><td>08/29/2019</td><td></td> [facility] 08/29/2019 Health 11:59:00 PM Center) EST Outpatient<td ID="[id number]">*Chart Attender: 08/29/2019 HULL Update*</td><td>ZINA ZHOU CRAWLER CRANE OPERATOR</td><td> ZINA 08: 56:00 AM ([place] </td><td>08/29/2019</td><td></td> [facility] 08/29/2019 Health 11:59:00 PM Center) EST Outpatient<td ID="[id number]">INITIAL Attender : Mayda 08/27/2019 [facility]</td><td>[facility]</td><td>[facility] 01:00:00 PM ([facility]</td><td>08/27/2019</td><td></td> [facility] 08/27/2019 Health 11:59:00 PM Center) EST Outpatient<td Attender: Mayda 08/27/2019 O HULL ID="as[id number]">[place]</td><td>[facility] 09:15:00 AM [facility]td><td>[facility] E ST - e [facility]</td><td>08/27/2019</td><td><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 07/31 s Health ID="[id number]">Obesity</content></td> 09:58:49 AM i Center) EST t y O b e s i t y O b e s i t y O b e s i t y O b e s i t y O b e s i t y O b e s i t y O b e s i t y O b e s i t y O b e s i t y O b e s i t y Obesity Obesity Obesity Obesity Obesity Obesity Obesity Obesity Obesity Obesity Obesity Outpatient Attender: NORMAN ORTA 08/19/2019 10:04:00 AM [facility] REIDAdmitter: PRAFUL [facility] - 09/01/2019 [facility] ROBBY 04:18:00 PM EST Patient discharged. Attender: 08/19/2019 [facility] [id number] 10:04:00 AM [facility] [id number] Outpatient Attender: PRAFUL [place] 08/19/2019 [facility] BASILIOAdmitter: PRAFUL BUSTAMANTE 07:01:00 AM [facility] Chungerrer: PRAFUL BASILIO Outpatient Attender: PRAFUL Coughlinitter: MARLON ORTA 0 [facility] CUATE 04:14:00 PM EST - Hospita l 08/14/2019 06:50:00 PM EST Patient discharged. Attender: 08/14/2019 [facility] [id number] 04:14:00 PM EST Hospital [id number] Emergency Attender: STAFF ED STAFF PHYSICIAN H 08/13/2019 [facility] 08:37:00 PM EST - Medical Center 08/14/2019 12:28:00 AM EST Patient discharged. Emergency Attender: HILDA STEVENS H 08/07/2019 07:36 :00 PM [facility] CAttender: STAFF ED STAFF EST - 08/08/2019 Medical Center PHYSICIANAdmitter: HILDA 02:49:00 AM EST SHIRLEY Grey Patient discharged. Planned [facility] 08/06/2019 eCW2 [facility] 12:00:00 [facility]) Outpatient Attender: 07/09/2019 [place] ODELL, 12:00:00 AM [facility] Care Corporat ion tter: DYLON BAIN Outpatient<td Attender: Mayda 06/16/2019 MARTA (M ount ID="[facility]Ty [facility] 02:46[facility]00 [facility] EST - Neighb orhood 14">PATIENT 06/16/2019 Health [place] ) ADVOCACY</td><t 11:59:00 PM d>[facility]</td><td >[facility]</td><td> 06/16/2019</td> <td></td> Outpatient Attender: Jodee 06/11/2019 [facility] ANUPAMA [facility] 08:40:00 AM Medical Cent er DEEBA EST TAHERAdmitt er: DEEBA KRIS DEEBA TAHERReferr er: DEEBLeola PONCE DEEBA TA Outpatient<td Attender: Mayda 05/27/2019 MARTA (M ount ID="encounterTy [facility] 10:19:00 AM [facility] EDT - Neighb orhood 15">*Chart 05/27/2019 [facility] [place]) Update*</td><td 11:59:00 PM >KRIS BRUSH MD</td><td>reema [facility]</td><td> 05/27/2019</td> <td></td> Outpatient<td Attender: Mayda 05/23/2019 MARTA (M ount ID="encounterTy [facility] 10:20:00 AM [facility] EDT - Neighb orhood 16">PATIENT 05/23/[address] [facility] ) ADVOCACY</td><t 11:59:00 PM d>[facility]</td><td >[facility]</td><td> 05/23/2019</td> <td></td> Outpatient<td Attender: Mayda 05/15/2019 MARTA (M ount ID="encounterTy [facility] 12:54:00 PM [facility] EDT - Neighb orhood 17">PATIENT 05/15/2019 [facility] [place] ) ADVOCACY</td><t 11:59:00 PM d>[facility]</td><td >[facility]</td><td> 05/15/2019</td> <td></td> Outpatient<td Attender: Mayda 05/15/2019 Assessment MARTA (M ount ID="encounterTy [facility] 12:00:00 PM [use For [facility] EDT - S.o.a.p. Note Nei ghborhood 18">[place]ALK[place]</td 05/15/2019 Free Health Ce nter) ><td>KRIS 10:44:23 AM Text]Diana CLARK EDT t [use For MD</td><td>Katina S.o.a.p. Note [facility] Free Health Text]Assessmen Center</td><td> t [use For 05/15/2019</td> S.o.a.p. Note <td><content Free ID="encounterDi Text]Assessmen [id number]"> t [use For Assessment [use S.o.a.p. Note For S.o.a.p. Free Note Free Text]Assessmen Text]</content> t [use For </td> S.o.a.p. Note Free Text]Assessmen t [use For S.o.a.p. Note Free Text]Assessmen t [use For S.o.a.p. Note Free Text]Assessmen t [use For S.o.a.p. Note Free Text]Assessmen t [use For S.o.a.p. Note Free Text]Assessmen t [use For S.o.a.p. Note Free Text]Assessmen t [use For S.o.a.p. Note Free Text]Assessmen t [use For S.o.a.p. Note Free Text]Assessmen t [use For S.o.a.p. Note Free Text]Assessmen t [use For S.o.a.p. Note Free Text]Assessmen t [use For S.o.a.p. Note Free Text]Assessmen t [use For S.o.a.p. Note Free Text]Assessmen t [use For S.o.a.p. Note Free Text] Assessment [use For S.o.a.p. Note Free T ext] Assessment [use For S.o.a.p. Note Free T ext] Assessment [use For S.o.a.p. Note Free T ext] Assessment [use For S.o.a.p. Note Free T ext] Assessment [use For S.o.a.p. Note Free T ext] Assessment [use For S.o.a.p. Note Free T ext] Assessment [use For S.o.a.p. Note Free T ext] Assessment [use For S.o.a.p. Note Free T ext] Assessment [use For S.o.a.p. Note Free T ext] Assessment [use For S.o.a.p. Note Free T ext] Assessment [use For S.o.a.p. Note Free T ext] Assessment [use For S.o.a.p. Note Free T ext] Assessment [use For S.o.a.p. Note Free T ext] Assessment [use For S.o.a.p. Note Free T ext] Assessment [use For S.o.a.p. Note Free T ext] Assessment [use For S.o.a.p. Note Free T ext] Assessment [use For S.o.a.p. Note Free T ext] Outpatient<td Attender: Mayda 05/15/2019 Obesity MorbidObesity HULL ID="[id number]">WALKINS</td><td>ZINA [facility] 11:30:00 AM MorbidObesity ([facility]</td><td>[facility] EDT - MorbidObesity [facility]</td><td>05/15/2019</td><td><[facility] ID="[id number]">Essential 01:07:3 2 PM MorbidObesity Center) Hypertension</content>, <content EDT Mor bidObesity ID="[id number]">Obesity MorbidObesity Morbid</content></td> MorbidObesity MorbidObesity MorbidObesity MorbidObesity MorbidObesity MorbidObesity MorbidObesity MorbidObesity MorbidEssential HypertensionEssential HypertensionEssential HypertensionEssential HypertensionEssential HypertensionEssential HypertensionEssential HypertensionEssential HypertensionEssential HypertensionEssential HypertensionEssential HypertensionEssential HypertensionEssential HypertensionEssential HypertensionEssential HypertensionEssential Hypertension Obesity Morbid Obesity Morbid Obesity Morbid Obesity Morbid Obesity Morbid Obesity Morbid Obesity Morbid Obesity Morbid Obesity Morbid Obesity Morbid Obesity Morbid Obesity Morbid Obesity Morbid Obesity Morbid Obesity Morbid Obesity Morbid Essential Hypertension Essential Hypertension Essential Hypertension Essential Hypertension Essential Hypertension Essential Hypertension Essential Hypertension Essential Hypertension Essential Hypertension Essential Hypertension Essential Hypertension Essential Hypertension Essential Hypertension Essential Hypertension Essential Hypertension Essential Hypertension Outpatient Attender: LEDY [place]sworth 05/13/2019 [facility] VILLAFANAAdmitter: LEDY 08:47:00 AM EDT [facility] MICAH VILLAFANAReferrer: LEDY VILLAFANA Outpatient<td Attender: ZINA ZHOU 05/09/2019 HULL ([facility] ID="[email or web address] CRAWLER CRANE OPERATOR 10:45:00 AM EDT - [facility] [id number]">*Danna 05/09/2019 [facility]) rt 11:59:00 PM EDT Update*</td><td>LIA ME LETICIAYELYDIAG CRAWLER CRANE OPERATOR</td><td> </td><td>05/09/2019 </td><td></td> Outpatient Attender: LEDY Ellsworth 05/09/2019 [facility] VILLAFANAAdmitter: LEDY 09:59:00 AM EDT Medical Center MICAH VILLAFANAReferrer: LEDY VILLAFANA Outpatient Attender: [id number] [facility] 05/06/2019 I ([facility] 02:20:53 PM EDT Care [facility]) Patient admitted. Outpatient<td Attender: Mayda 04/24/2019 Vitamin D Defi ciencyVitamin D DeficiencyVitamin D DeficiencyVitamin D DeficiencyVitamin D DeficiencyVitamin D HULL ID="[id number]">WALKINS</td><td>[facility] 09:15:00 AM DeficiencyVitamin D DeficiencyVitamin D DeficiencyVitamin D DeficiencyVitamin D DeficiencyVitamin D ([place] [facility]</td><td>[facility] EDT - DeficiencyVitamin D DeficiencyVitamin D DeficiencyVitamin D DeficiencyVitamin D DeficiencyVitamin D [facility]</td><td>04/24/2019</td><td><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 04/24/2019 DeficiencyVitamin D DeficiencyVitamin D DeficiencyVitamin D Health ID="[id number]">Vitamin D 0 9:49:02 AM DeficiencyObesityObesityObesityObesityObesityObesityObesityObesityObesityObesity [place]) Deficiency</content>, <content EDT besit yObesityObesityObesity ID="[id number]">Obesity</content></td> Vitamin D Deficiency Vitamin D Deficiency Vitamin D Deficiency Vitamin D Deficiency Vitamin D Deficiency Vitamin D Deficiency Vitamin D Deficiency Vitamin D Deficiency Vitamin D Deficiency Vitamin D Deficiency Vitamin D Deficiency Vitamin D Deficiency Vitamin D Deficiency Vitamin D Deficiency Vitamin D Deficiency Vitamin D Deficiency Vitamin D Deficiency Vitamin D Deficiency Vitamin D Deficiency Obesity Obesity Obesity Obesity Obesity Obesity Obesity Obesity Obesity Obesity Obesity Obesity Obesity Obesity Obesity Obesity Obesity Obesity Obesity Outpatient<td Attender: 04/18/2019 HULL ID="[id number]">*OUTREACH*</td><td>ZINA IZAGUIRRE 12:22:00 [facility]td><td> [facility] - [facility] </td><td>04/18/2019</td><td></td> 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 03/30 s Health ID="[id number]">Mild Cognitive e 01 :40:25 PM i Center) Impairment</content>, <content r EDT t ID="[id number]">Vitamin D s y Deficiency</content>, <content C M ID="[id number]">Obesity Morbid</content></td> o o m r m b u i n d i V t i y t H a e m a i l n t D h D C e e f n i t c e i r e n c y M i l d C o g n i t i v e I m p a i r m e n t O b e s i t y M o r b i d V i t a m i n D D e f i c i e n c y M i l d C o g n i t i v e I m p a i r m e n t O b e s i t y M o r b i d V i t a m i n D D e f i c i e n c y M i l d C o g n i t i v e I m p a i r m e n t O b e s i t y M o r b i d V i t a m i n D D e f i c i e n c y M i l d C o g n i t i v e I m p a i r m e n t O b e s i t y M o r b i d V i t a m i n D D e f i c i e n c y M i l d C o g n i t i v e I m p a i r m e n t O b e s i t y M o r b i d V i t a m i n D D e f i c i e n c y M i l d C o g n i t i v e I m p a i r m e n t O b e s i t y M o r b i d V i t a m i n D D e f i c i e n c y M i l d C o g n i t i v e I m p a i r m e n t O b e s i t y M o r b i d V i t a m i n D D e f i c i e n c y M i l d C o g n i t i v e I m p a i r m e n t O b e s i t y M o r b i d V i t a m i n D D e f i c i e n c y M i l d C o g n i t i v e I m p a i r m e n t O b e s i t y M o r b i d V i t a m i n D D e f i c i e n c y M i l d C o g n i t i v e I m p a i r m e n t O b e s i t y M o r b i d V i t a m i n D D e f i c i e n c y M i l d C o g n i t i v e I m p a i r m e n t O b e s i t y M o r b i d V i t a m i n D D e f i c i e n c y M i l d C o g n i t i v e I m p a i r m e n t O b e s i t y M o r b i d V i t a m i n D D e f i c i e n c y M i l d C o g n i t i v e I m p a i r m e n t O b e s i t y M o r b i d V i t a m i n D D e f i c i e n c y M i l d C o g n i t i v e I m p a i r m e n t O b e s i t y M o r b i d V i t a m i n D D e f i c i e n c y M i l d C o g n i t i v e I m p a i r m e n t O b e s i t y M o r b i d V i t a m i n D D e f i c i e n c y M i l d C o g n i t i v e I m p a i r m e n t O b e s i t y M o r b i d V i t a m i n D D e f i c i e n c y M i l d C o g n i t i v e I m p a i r m e n t O b e s i t y M o r b i d V i t a m i n D D e f i c i e n c y M i l d C o g n i t i v e I m p a i r m e n t O b e s i t y M o r b i d V i t a m i n D D e f i c i e n c y M i l d C o g n i t i v e I m p a i r m e n t O b e s i t y M o r b i d V i t a m i n D D e f i c i e n c y M i l d C o g n i t i v e I m p a i r m e n t O b e s i t y M o r b i d V i t a m i n D D e f i c i e n c y M i l d C o g n i t i v e I m p a i r m e n t O b e s i t y M o r b i d V i t a m i n D D e f i c i e n c y M i l d C o g n i t i v e I m p a i r m e n t Obesity Morbid Vitamin D Deficiency Mild Cognitive Impairment Obesity Morbid Vitamin D Deficiency Mild Cognitive Impairment Obesity Morbid Vitamin D Deficiency Mild Cognitive Impairment Obesity Morbid Vitamin D Deficiency Mild Cognitive Impairment Obesity Morbid Vitamin D Deficiency Mild Cognitive Impairment Obesity Morbid Vitamin D Deficiency Mild Cognitive Impairment Obesity Morbid Vitamin D Deficiency Mild Cognitive Impairment Obesity Morbid Vitamin D Deficiency Mild Cognitive Impairment Obesity Morbid Vitamin D Deficiency Mild Cognitive Impairment Obesity Morbid Vitamin D Deficiency Mild Cognitive Impairment Obesity Morbid Vitamin D Deficiency Mild Cognitive Impairment Obesity Morbid Vitamin D Deficiency Mild Cognitive Impairment Obesity Morbid Vitamin D Deficiency Mild Cognitive Impairment Obesity Morbid Vitamin D Deficiency Mild Cognitive Impairment Obesity Morbid Vitamin D Deficiency Mild Cognitive Impairment Obesity Morbid Vitamin D Deficiency Mild Cognitive Impairment Obesity Morbid Vitamin D Deficiency Mild Cognitive Impairment Obesity Morbid Vitamin D Deficiency Mild Cognitive Impairment Obesity Morbid Vitamin D Deficiency Mild Cognitive Impairment Obesity Morbid Vitamin D Deficiency Mild Cognitive Impairment Obesity Morbid Vitamin D Deficiency Mild Cognitive Impairment Obesity Morbid Vitamin D Deficiency Mild Cognitive Impairment Outpatient<td Attender: Mayda 04/17/2019 HULL ID="[id number]">[facility] 12: 30:00 PM (Narciso Hong INITIAL VISIT</td><td>[facility] EDT - Neighborhood RD</td><td>[facility] 04/17/2019 Health Center</td><td>04/17/2019</td><td></td> 01:13:1 6 PM Center) EDT Outpatient<td Attender: Mayda 04/10/2019 Chely LOZANO ID="[id number]">[facility] 09:00:00 AM o ([place] ANNUAL</td><td>[facility] EDT - u [facility] CN</td><td>[facility] 04/10/2019 Health Center</td><td>04/10/2019</td><td><content 10:0 0:07 AM i Center) ID="[id number]">Routine EDT n Gynecological Exam with Cervical Pap e Smear</content></td> G y n e c o l o g i c a l E x a m w i t h C e r v i c a l P a p S m e a r R o u t i n e G y n e c o l o g i c a l E x a m w i t h C e r v i c a l P a p S m e a r R o u t i n e G y n e c o l o g i c a l E x a m w i t h C e r v i c a l P a p S m e a r R o u t i n e G y n e c o l o g i c a l E x a m w i t h C e r v i c a l P a p S m e a r R o u t i n e G y n e c o l o g i c a l E x a m w i t h C e r v i c a l P a p S m e a r R o u t i n e G y n e c o l o g i c a l E x a m w i t h C e r v i c a l P a p S m e a r R o u t i n e G y n e c o l o g i c a l E x a m w i t h C e r v i c a l P a p S m e a r R o u t i n e G y n e c o l o g i c a l E x a m w i t h C e r v i c a l P a p S m e a r R o u t i n e G y n e c o l o g i c a l E x a m w i t h C e r v i c a l P a p S m e a r R o u t i n e G y n e c o l o g i c a l E x a m w i t h C e r v i c a l P a p S m e a r R o u t i n e G y n e c o l o g i c a l E x a m w i t h C e r v i c a l P a p S m e a r R o u t i n e G y n e c o l o g i c a l E x a m w i t h C e r v i c a l P a p S m e a r R o u t i n e G y n e c o l o g i c a l E x a m w i t h C e r v i c a l P a p S m e a r R o u t i n e G y n e c o l o g i c a l E x a m w i t h C e r v i c a l P a p S m e a r R o u t i n e G y n e c o l o g i c a l E x a m w i t h C e r v i c a l P a p S m e a r R o u t i n e G y n e c o l o g i c a l E x a m w i t h C e r v i c a l P a p S m e a r R o u t i n e G y n e c o l o g i c a l E x a m w i t h C e r v i c a l P a p S m e a r R o u t i n e G y n e c o l o g i c a l E x a m w i t h C e r v i c a l P a p S m e a r R o u t i n e G y n e c o l o g i c a l E x a m w i t h C e r v i c a l P a p S m e a r R o u t i n e G y n e c o l o g i c a l E x a m w i t h C e r v i c a l P a p S m e a r R o u t i n e G y n e c o l o g i c a l E x a m w i t h C e r v i c a l P a p S m e a r R o u t i n e G y n e c o l o g i c a l E x a m w i t h C e r v i c a l P a p S m e a r R o u t i n e G y n e c o l o g i c a l E x a m w i t h C e r v i c a l P a p S m e a r R o u t i n e G y n e c o l o g i c a l E x a m w i t h C e r v i c a l P a p S m e a r Routine Gynecological Exam with Cervical Pap Smear Routine Gynecological Exam with Cervical Pap Smear Routine Gynecological Exam with Cervical Pap Smear Routine Gynecological Exam with Cervical Pap Smear Routine Gynecological Exam with Cervical Pap Smear Routine Gynecological Exam with Cervical Pap Smear Routine Gynecological Exam with Cervical Pap Smear Routine Gynecological Exam with Cervical Pap Smear Routine Gynecological Exam with Cervical Pap Smear Routine Gynecological Exam with Cervical Pap Smear Routine Gynecological Exam with Cervical Pap Smear Routine Gynecological Exam with Cervical Pap Smear Routine Gynecological Exam with Cervical Pap Smear Routine Gynecological Exam with Cervical Pap Smear Routine Gynecological Exam with Cervical Pap Smear Routine Gynecological Exam with Cervical Pap Smear Routine Gynecological Exam with Cervical Pap Smear Routine Gynecological Exam with Cervical Pap Smear Routine Gynecological Exam with Cervical Pap Smear Routine Gynecological Exam with Cervical Pap Smear Routine Gynecological Exam with Cervical Pap Smear Routine Gynecological Exam with Cervical Pap Smear Routine Gynecological Exam with Cervical Pap Smear Routine Gynecological Exam with Cervical Pap Smear Outpatient<td Attender: Mayda 04/07/2019 HULL ID="[id number]">WALKINS</td><td>[facility] 10:30:00 AM ([facility]</td><td>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 03/2019 d Health ID="[id number]">Obesity Morbid</content>, 10:44:15 AM a Center) <content ID="[id number]">Headache EDT c Syndromes</content></td> h e S y n d r o m e s O b e s i t y M o r b i d H e a d a c h e S y n d r o m e s O b e s i t y M o r b i d H e a d a c h e S y n d r o m e s O b e s i t y M o r b i d H e a d a c h e S y n d r o m e s O b e s i t y M o r b i d H e a d a c h e S y n d r o m e s O b e s i t y M o r b i d H e a d a c h e S y n d r o m e s O b e s i t y M o r b i d H e a d a c h e S y n d r o m e s O b e s i t y M o r b i d H e a d a c h e S y n d r o m e s O b e s i t y M o r b i d H e a d a c h e S y n d r o m e s O b e s i t y M o r b i d H e a d a c h e S y n d r o m e s O b e s i t y M o r b i d H e a d a c h e S y n d r o m e s O b e s i t y M o r b i d H e a d a c h e S y n d r o m e s O b e s i t y M o r b i d H e a d a c h e S y n d r o m e s O b e s i t y M o r b i d H e a d a c h e S y n d r o m e s O b e s i t y M o r b i d H e a d a c h e S y n d r o m e s O b e s i t y M o r b i d H e a d a c h e S y n d r o m e s O b e s i t y M o r b i d H e a d a c h e S y n d r o m e s O b e s i t y M o r b i d H e a d a c h e S y n d r o m e s O b e s i t y M o r b i d H e a d a c h e S y n d r o m e s O b e s i t y M o r b i d H e a d a c h e S y n d r o m e s O b e s i t y M o r b i d H e a d a c h e S y n d r o m e s O b e s i t y M o r b i d H e a d a c h e S y n d r o m e s O b e s i t y M o r b i d H e a d a c h e S y n d r o m e s O b e s i t y M o r b i d H e a d a c h e S y n d r o m e s O b e s i t y M o r b i d H e a d a c h e S y n d r o m e s O b e s i t y M o r b i d H e a d a c h e S y n d r o m e s O b e s i t y M o r b i d Headache Syndromes Obesity Morbid Headache Syndromes Obesity Morbid Headache Syndromes Obesity Morbid Headache Syndromes Obesity Morbid Headache Syndromes Obesity Morbid Headache Syndromes Obesity Morbid Headache Syndromes Obesity Morbid Headache Syndromes Obesity Morbid Headache Syndromes Obesity Morbid Headache Syndromes Obesity Morbid Headache Syndromes Obesity Morbid Headache Syndromes Obesity Morbid Headache Syndromes Obesity Morbid Headache Syndromes Obesity Morbid Headache Syndromes Obesity Morbid Headache Syndromes Obesity Morbid Headache Syndromes Obesity Morbid Headache Syndromes Obesity Morbid Headache Syndromes Obesity Morbid Headache Syndromes Obesity Morbid Headache Syndromes Obesity Morbid Headache Syndromes Obesity Morbid Headache Syndromes Obesity Morbid Headache Syndromes Obesity Morbid Headache Syndromes Obesity Morbid Headache Syndromes Obesity Morbid Outpatient 04/03/2019 11:26:34 PM EDT [facility] ([facility]) Patient admitted. Outpatient Attender: ANGIE ORTA 01/06/2019 09:00:00 [facility] EDMUND BEBA EDT - 04/30/2019 [facility] 09:00:00 AM EDT Patient discharged. Immunizations Vaccine Date Status Description Data Source(s) Medroxyprogesterone (FP) 08/06/2019 completed eCW 2 (Planned 12:21:00 PM [facility]) Medroxyprogesterone (FP) 08/06/2019 completed eCW 2 (Planned 12:21:00 PM EST [facility]) Medications Medication Brand Start Product Dose Route Administrative Pharmacy at Indications Reaction Description Data Name Date Form Instructions Instructions Source(s) 1 ML Invega INTRAM complet Invega Phu t paliperidon Susten 2020 Malissa USCULA ed Sustenna - [facility] palmitate na - 12:00: gram R 156 MG Hosp ital 156 MG/ML 156 MG 00 AM INTRAMUSCULA Prefilled INTRAM EDT R Syringe USCULA Suspension, [Invega] R Extended Suspen Release shady, Extend ed Releas e aripiprazol aripip 12/17/ 5 mL ORAL active take 5 NEXTGEN e 1 MG/ML razole 2020 milliliter (S aint Oral 1 12:00: by oral Pam Solution mg/mL 00 AM route every M edical aripiprazol oral EDT day Center) e 1 mg/mL soluti oral on solution aripiprazol aripip 12/17/ 5 mL ORAL complet take 5 NEXTGEN e 1 MG/ML razole 2020 ed milliliter (S aint Oral 1 12:00: by oral Pam Solution mg/mL 00 AM route every M edical aripiprazol oral EDT day Center) e 1 mg/mL soluti oral on solution Medication administered onsite aripiprazole 1 aripiprazole 1 11/18/2019 5 ORAL completed take 5 NEXTGEN MG/ML Oral mg/mL oral 12:00:00 AM mL m illiliter by (Saint Solution solution EDT oral route J osep aripiprazole 1 every day Medical mg/mL oral Center) solution 1 ML Invega Sustenna 10/21/2019 completed 1 ML NEXTGEN paliperidone 156 mg/mL 12:00:00 AM paliperidone (Saint palmitate 156 intramuscular EDT pa lmitate 156 Pam MG/ML Prefilled syringe MG/ML Medical Syringe Prefilled Center) [Invega] Invega Syringe Sustenna 156 [Invega] mg/mL intramuscular syringe Medication administered onsite 1 ML Invega 10/21/2019 active 1 ML NEXTG EN paliperidone Sustenna 156 12:00:00 AM paliperidone (Saint palmitate 156 mg/mL EDT palmitate 156 Pam MG/ML Prefilled intramuscular MG/ML Medical Syringe [Invega] syringe Prefi lled Center) Invega Sustenna Syringe 156 mg/mL [Invega] intramuscular syringe 1 ML Invega 09/18/2019 156 INT complete Invega S aint paliperidone Sustenna - 156 12:00:00 AM Mil MITCH d Sustenna - 156 [facility] palmitate 156 MG EST lig [facility] MG/ML Prefilled INTRAMUSCULAR mitch SANDY INTRAMUSCULAR Syringe [Invega] Suspension, R S uspension, Extended Extended Release Release 1 ML Invega 09/18/2019 complete 1 ML NEX TGEN paliperidone Sustenna 156 12:00:00 AM d paliperidone (Saint palmitate 156 mg/mL EST palmitate 156 Pam MG/ML Prefilled intramuscular MG/ML Medical Syringe [Invega] syringe Prefi lled [place]) Invega Sustenna Syringe 156 mg/mL [Invega] intramuscular syringe aripiprazole 1 aripiprazole 1 09/18/2019 5 ORA complete take 5 NEXTGEN MG/ML Oral mg/mL oral 12:00:00 AM mL L d m illiliter by ([facility] Solution solution EST oral route [facility] arip[facility]ole 1 every day Medical mg/mL oral Center) solution Cholecalciferol Vitamin D3 25 09/02/2019 UNI 1 active Vitamin D3 MARTA 1000 UNT Oral MCG(1000 UT) 12:00:00 AM T ([facility] Tablet Vitamin Oral Tablet EST Hal D3 25 MCG(1000 Neigh borh UT) Oral Tablet [facility]) 1 ML Invega 08/20/2019 156 INT complete Invega S aint paliperidone Sustenna - 156 12:00:00 AM Mil MITCH d Sustenna - 156 [facility] palmitate 156 MG EST lig [facility] MG/ML Prefilled INTRAMUSCULAR mitch SANDY INTRAMUSCULAR Syringe [Invega] Suspension, R S uspension, Extended Extended Release Release MetroGel-Vaginal UNK 08/06/2019 active 1 application eCW2 0.75 % 12:00:00 AM at bedtime (Planned EST [facility] [employer] [employer] [place]) Blood Pressure Blood Pressure 05/15/2019 UNI 1 complete Blood Pressure MARTA Kit Device Kit Device 12:00:00 AM T d K it ([facility] EDT Hal [facility] [place]) Cholecalciferol Vitamin D3 03/10/2019 UNI 1 suspende Vitamin D3 MARTA 1000 UNT Oral 1000UNIT Oral 12:00:00 AM T d ([place] Tablet Vitamin Tablet EDT Bony non D3 1000UNIT Oral Nei ghborh Tablet [facility] [place]) Ascorbic Acid Ascorbic Acid 02/13/2019 UNI 1 complete Ascorbic Acid MARTA 500 MG Oral 500MG Oral 12:00:00 AM T d ([place] Tablet Ascorbic Tablet EDT Ve rnon Acid 500MG Oral Neig hborh Tablet [facility] [place]) ferrous sulfate Ferrous 02/13/2019 UNI 1 complete Ferrous MRATA 325 MG Oral Sulfate 325 12:00:00 AM T d Sulfate ([facility] Tablet Ferrous (65 Fe)MG Oral EDT Hal Sulfate 325 (65 Tablet Ne ighborh Fe)MG Oral ood [facility]) ferrous sulfate Ferrous 11/28/2018 UNI 1 complete Ferrous MARTA 325 MG Delayed Sulfate 325 12:00:00 AM T d Sulfate ([facility] Release Oral (65 Fe)MG Oral EDT Hal Tablet Ferrous Tablet Delayed Neighborh Sulfate 325 (65 Release o od Fe)MG Oral Health Tablet Delayed Cente r) Release Ascorbic Acid Ascorbic Acid 11/28/2018 UNI 1 complete Ascorbic Acid MARTA 500 MG Oral 500MG Oral 12:00:00 AM T d ([facility] Tablet Ascorbic Tablet EDT Ve rnon Acid 500MG Oral Neig hborh Tablet [facility] [place]) olanzapine 5 MG Zyprexa 5 mg 11/05/2018 complete olanzapine 5 NEXTGEN Oral Tablet tablet 12:00:00 AM d MG O ral Tablet ([facility] [Zyprexa] EDT [Zyprexa] [facility] Zyprexa 5 mg [facility] tablet Center) Acetaminophen Excedrin Extra 06/21/2010 complete Acetaminophen NEXTGEN 250 MG / Aspirin Strength 250 12:00:00 AM d 250 MG / ([facility] 250 MG / mg-250 mg-65 EST Aspirin 250 MG Pam Caffeine 65 MG mg Tab / Caffei ne 65 Medical Oral Tablet MG Oral Table t Center) [Excedrin] [Excedrin] Excedrin Extra Strength 250 mg-250 mg-65 mg Tab Amitriptyline Amitriptyline 06/21/2010 1.0 ORA complete take 1 tablet NEXTGEN Hydrochloride 25 25 mg Tab 12:00:00 AM 0 L d (25MG) by ([facility] MG Oral Tablet EST {tb ORAL route Pam Amitriptyline 25 l} every da y at Medical mg Tab bedtime Center) Zithromax Z-Toby Azithromycin 05/17/2010 2.0 ORA complete Z-TOBY NEXTGEN 250 mg Tab 250 MG Oral 12:00:00 AM 0 L d ([facility] Tablet EDT {tb [facility]) Ibuprofen 600 mg IBUPROFEN 05/17/2010 1.0 ORA complete take 1 tablet NEXTGEN Tab 12:00:00 AM 0 L d (600MG) by ( [facility] EDT {tb ORAL route 3 Pam l} times every Medical day with food Center ) Insurance Providers Payer name Policy type / Policy ID Covered Covered Policy Plan Coverage type libertarian ID libertarian's Duenas Inform ation relationship to duenas [employer] [facility] [id number] SP [id number] NON CAP SELF PAY [id number] Self [id number] MEDICAID OP [id number] Self [id number] [facility] [facility] [id number] Self [id number] SELF PAY [id number] Self [id number] MEDICAID INP [id number] Self [id number] E PSYCH [facility] [facility] [id number] Self [id number] [facility] SVW INPATIENT [place] [id number] 01 [id number] [place] [facility] New Individual 0 Self 0 [place] Policy [facility] [place] Individual 0 Self 0 [place] Policy [place] Individual 0 Self 0 [place] Policy [place] Individual 0 Self 0 [place] Policy [facility] [place] Individual 0 Self 0 [place] Policy [facility] [place] Individual 0 Self 0 [place] Policy [facility] [place] Individual 0 Self 0 [place] Policy [facility] [place] Individual 0 Self 0 [place] Policy [place] Individual 0 Self 0 [place] Policy [facility] [place] Individual 0 Self 0 [place] Policy [place] Individual 0 Self 0 [place] Policy SELF PAY 0000 Self 0000 MEDICAID OP [id number] Self [id number] [facility] [place] [id number] Self [id number] SELF PAY 0 Self 0 MEDICAID OP [id number] Self [id number] [place] Individual 0 Self 0 [place] Policy [facility] [place] Individual 0 Self 0 [place] Policy [place] New Individual 0 Self 0 [place] Policy [place] Individual 0 Self 0 [place] Policy [facility] [place] Individual 0 Self 0 [place] Policy [facility] [place] Individual 0 Self 0 [place] Policy [place] [facility] [place] Individual 0 Self 0 [place] Policy [facility] [place] Individual 0 Self 0 [place] Policy [place] New Individual 0 Self 0 [place] Policy [facility] [place] Individual 0 Self 0 [place] Policy [facility] [place] Individual 0 Self 0 [place] Policy [facility] [place] Individual 0 Self 0 [place] Policy [place] Individual 0 Self 0 [place] Policy [facility] [facility] [place] Individual 0 Self 0 [place] Policy [facility] [place] Individual 0 Self 0 [place] Policy [place] Individual 0 Self 0 [place] Policy [place] New Individual 0 Self 0 [place] Policy [facility] Care [place] Individual 0 Self 0 [place] Policy MEDICAID OP [id number] Self [id number] [facility] [place] [id number] Self [id number] SELF PAY 00 Self 00 MEDICAID OP [id number] Self [id number] [facility] [place] [id number] Self [id number] [place] New Individual 0 Self 0 [place] Policy W [id number] 01 [id number] [place] Care New [id number] S [id number] [place] FFS [id number] S [id number] Medicaid Medicaid FFS [id number] S [id number] E Medicaid [id number] S [id number] Wrap Claims Medicaid 4011 MH [id number] S [id number] Psychotherapy Only Dental [id number] S [id number] 100 Dentaquest [place] Vision MKD [id number] S [id number] Medicaid [id number] S [id number] Regular Clinic Visit Avimor [id number] S [id number] 100 Healthier Life MKD -- HARP [facility] Care New Individual 0 Self 0 [place] Policy [facility] Care New Individual 0 Self 0 [place] Policy [place] [facility] New Individual 0 Self 0 [place] Policy Problems, Conditions, and Diagnoses Code Display Name Description Problem Effective Data Source (s) Type Dates [id number] Vitamin D deficiency Vitamin D Deficiency Problem 01/18 [facility] (disorder) 12:00:00 AM ([facility]) [id number] Schizophrenia Schizophrenia Problem 01/19/2020 [facility] (disorder) 12:00:00 AM ([facility]) 83761927 Vitamin D deficiency Vitamin D Deficiency Problem 01/18 [facility] (disorder) 12:00:00 AM ([facility]) 11240634 Schizophrenia Schizophrenia Problem 01/19/2020 [facility] (disorder) 12:00:00 AM ([facility]) 06472766 Vitamin D deficiency Vitamin D Deficiency Problem 10/13 [facility] (disorder) 12:00:00 AM ([facility]) 57044936 Schizophrenia Schizophrenia Problem 10/14/2019 [facility] (disorder) 12:00:00 AM ([facility]) 38843149 Vitamin D deficiency Vitamin D Deficiency Problem 10/13 [facility] (disorder) 12:00:00 AM ([facility]) 80673579 Schizophrenia Schizophrenia Problem 10/14/2019 [facility] (disorder) 12:00:00 AM ([facility]) 22823099 Vitamin D deficiency Vitamin D Deficiency Problem 10/07 [facility] (disorder) 12:00:00 AM ([facility]) 75911078 Schizophrenia Schizophrenia Problem 10/08/2019 [facility] (disorder) 12:00:00 AM ([facility]) 78735233 Vitamin D deficiency Vitamin D Deficiency Problem 09/05 [place] (disorder) 12:00:00 AM ([facility]) 13807767 Vitamin D deficiency Vitamin D Deficiency Problem 09/02 [place] (disorder) 12:00:00 AM ([facility]) 04124609 Vitamin D deficiency Vitamin D Deficiency Problem 09/02 [facility] (disorder) 12:00:00 AM ([facility]) 61088744 Vitamin D deficiency Vitamin D Deficiency Problem 08/29 [facility] (disorder) 12:00:00 AM ([facility]) 32944945 Vitamin D deficiency Vitamin D Deficiency Problem 08/29 [facility] (disorder) 12:00:00 AM ([facility]) 99876255 Schizophrenia Schizophrenia Problem 08/27/2019 [facility] (disorder) 12:00:00 AM ([facility]) 37409414 Schizophrenia Schizophrenia Problem 08/27/2019 [facility] (disorder) 12:00:00 AM ([facility]) 65877893 Vitamin D deficiency Vitamin D Deficiency Problem 08/27 [facility] (disorder) 12:00:00 AM ([facility]) 37444787 Schizophrenia Schizophrenia Problem 08/27/2019 [facility] (disorder) 12:00:00 AM ([facility]) 71523688 Schizophrenia Schizophrenia Problem 08/27/2019 [facility] (disorder) 12:00:00 AM ([facility]) 33525072 Schizophrenia Schizophrenia Problem 08/27/2019 [facility] (disorder) 12:00:00 AM ([facility]) 48853773 Schizophrenia Schizophrenia Problem 08/27/2019 [facility] (disorder) 12:00:00 AM ([facility]) 35176901 Vitamin D deficiency Vitamin D Deficiency Problem 05/27 [facility] (disorder) 12:00:00 AM ([facility]) 50990329 Vitamin D deficiency Vitamin D Deficiency Problem 05/27 [facility] (disorder) 12:00:00 AM ([facility]) 13991629 Vitamin D deficiency Vitamin D Deficiency Problem 05/27 [facility] (disorder) 12:00:00 AM ([facility]) 15895744 Cyst of ovary Ovarian Cyst Left Problem 05/15/2019 GREE NWAY (disorder) 12:00:00 AM ([facility]) 25404280 Cyst of nasal sinus Nasal Sinus Cyst Problem 05/15/2019 [facility] (disorder) 12:00:00 AM ([facility]) 40919145 Disorder of breast Breast Disorders Problem 05/15/2019 [facility] (disorder) 12:00:00 AM ([facility]) 42388921 Cyst of ovary Ovarian Cyst Left Problem 05/15/2019 [facility]REE NWAY (disorder) 12:00:00 AM ([facility]) 52273844 Cyst of nasal sinus Nasal Sinus Cyst Problem 05/15/2019 [facility] (disorder) 12:00:00 AM ([facility]) 25004000 Disorder of breast Breast Disorders Problem 05/15/2019 MARAT (disorder) 12:00:00 AM ([facility]) 93824938 Cyst of ovary Ovarian Cyst Left Problem 05/15/2019 [facility] NWAY (disorder) 12:00:00 AM ([facility]) 78495576 Cyst of nasal sinus Nasal Sinus Cyst Problem 05/15/2019 [facility] (disorder) 12:00:00 AM ([facility]) 59041371 Disorder of breast Breast Disorders Problem 05/15/2019 [facility] (disorder) 12:00:00 AM ([facility]) 36095106 Cyst of ovary Ovarian Cyst Left Problem 05/15/2019 [facility] NWAY (disorder) 12:00:00 AM ([facility]) 86830677 Cyst of nasal sinus Nasal Sinus Cyst Problem 05/15/2019 [facility] (disorder) 12:00:00 AM ([facility]) 01218183 Disorder of breast Breast Disorders Problem 05/15/2019 [facility] (disorder) 12:00:00 AM ([facility]) 57962795 Cyst of ovary Ovarian Cyst Left Problem 05/15/2019 [facility] NW[facility] (disorder) 12:00:00 AM ([facility]) 06881191 Cyst of nasal sinus Nasal Sinus Cyst Problem 05/15/2019 [facility] (disorder) 12:00:00 AM ([facility]) 72826119 Disorder of breast Breast Disorders Problem 05/15/2019 [facility] (disorder) 12:00:00 AM ([facility]) 18273300 Cyst of ovary Ovarian Cyst Left Problem 05/15/2019 [facility] (disorder) 12:00:00 AM ([facility]) 24967511 Cyst of nasal sinus Nasal Sinus Cyst Problem 05/15/2019 [facility] (disorder) 12:00:00 AM ([facility]) 84347776 Disorder of breast Breast Disorders Problem 05/15/2019 [facility] (disorder) 12:00:00 AM ([facility]) 00740866 Cyst of ovary Ovarian Cyst Left Problem 05/15/2019 [facility] (disorder) 12:00:00 AM ([facility]) 58391147 Cyst of nasal sinus Nasal Sinus Cyst Problem 05/15/2019 [facility] (disorder) 12:00:00 AM ([facility]) 24299200 Disorder of breast Breast Disorders Problem 05/15/2019 [facility] (disorder) 12:00:00 AM ([facility]) 33514976 Cyst of ovary Ovarian Cyst Left Problem 05/15/2019 [facility] (disorder) 12:00:00 AM ([facility]) 85324039 Cyst of nasal sinus Nasal Sinus Cyst Problem 05/15/2019 [facility] (disorder) 12:00:00 AM ([facility]) 22902299 Disorder of breast Breast Disorders Problem 05/15/2019 [facility] (disorder) 12:00:00 AM ([facility]) 06255037 Cyst of ovary Ovarian Cyst Left Problem 05/15/2019 [facility] (disorder) 12:00:00 AM ([facility]) 03855436 Cyst of nasal sinus Nasal Sinus Cyst Problem 05/15/2019 [facility] (disorder) 12:00:00 AM ([facility]) 21833577 Disorder of breast Breast Disorders Problem 05/15/2019 [facility] (disorder) 12:00:00 AM ([facility]) 36322192 Cyst of ovary Ovarian Cyst Left Problem 05/15/2019 [facility] NW[facility] (disorder) 12:00:00 AM ([facility]) 39487831 Cyst of nasal sinus Nasal Sinus Cyst Problem 05/15/2019 [facility] (disorder) 12:00:00 AM ([facility]) 26469679 Disorder of breast Breast Disorders Problem 05/15/2019 [facility] (disorder) 12:00:00 AM ([facility]) 06728181 Cyst of ovary Ovarian Cyst Left Problem 05/15/2019 [facility] (disorder) 12:00:00 AM ([facility]) 03061593 Cyst of nasal sinus Nasal Sinus Cyst Problem 05/15/2019 [facility] (disorder) 12:00:00 AM ([facility]) 19699817 Disorder of breast Breast Disorders Problem 05/15/2019 [facility] (disorder) 12:00:00 AM ([facility]) 12642691 Cyst of ovary Ovarian Cyst Left Problem 05/15/2019 [facility] (disorder) 12:00:00 AM ([facility]) 63568287 Cyst of nasal sinus Nasal Sinus Cyst Problem 05/15/2019 [facility] (disorder) 12:00:00 AM ([facility]) 59803377 Disorder of breast Breast Disorders Problem 05/15/2019 [facility] (disorder) 12:00:00 AM ([facility]) 97214060 Cyst of ovary Ovarian Cyst Left Problem 05/15/2019 [facility] (disorder) 12:00:00 AM ([facility]) 88396166 Cyst of nasal sinus Nasal Sinus Cyst Problem 05/15/2019 [facility] (disorder) 12:00:00 AM ([facility]) 02284403 Disorder of breast Breast Disorders Problem 05/15/2019 [facility] (disorder) 12:00:00 AM ([facility]) 30922497 Cyst of ovary Ovarian Cyst Left Problem 05/15/2019 [facility] NW[facility] (disorder) 12:00:00 AM ([facility]) 27758309 Cyst of nasal sinus Nasal Sinus Cyst Problem 05/15/2019 [facility] (disorder) 12:00:00 AM ([facility]) 99018955 Disorder of breast Breast Disorders Problem 05/15/2019 [facility] (disorder) 12:00:00 AM ([facility]) 17732771 Vitamin D deficiency Vitamin D Deficiency Problem 05/15 [facility] (disorder) 12:00:00 AM ([facility]) 12950523 Vitamin D deficiency Vitamin D Deficiency Problem 05/15 [facility] (disorder) 12:00:00 AM ([facility]) 20502712 Cyst of ovary Ovarian Cyst Left Problem 05/15/2019 [facility] NW[facility] (disorder) 12:00:00 AM ([facility]) 24451653 Disorder of breast Breast Disorders Problem 05/15/2019 [facility] (disorder) 12:00:00 AM ([facility]) 39554575 Vitamin D deficiency Vitamin D Deficiency Problem 05/15 [facility] (disorder) 12:00:00 AM ([facility]) 28090080 Cyst of ovary Ovarian Cyst Left Problem 05/15/2019 [facility] (disorder) 12:00:00 AM ([facility]) 89722722 Cyst of nasal sinus Nasal Sinus Cyst Problem 05/15/2019 [facility] (disorder) 12:00:00 AM ([facility]) 76930248 Disorder of breast Breast Disorders Problem 05/15/2019 [facility] (disorder) 12:00:00 AM ([facility]) 39589708 Vitamin D deficiency Vitamin D Deficiency Problem 05/09 [facility] (disorder) 12:00:00 AM ([facility]) 58959475 Vitamin D deficiency Vitamin D Deficiency Problem 04/24 [facility] (disorder) 12:00:00 AM ([facility]) 91174191 Urinary tract Urinary Tract Problem 01/23/2019 [facility] infectious disease Infection 12:00:00 AM ([facility] Hong (disorder) [facility] 10/14/[address] [facility]) 12:00:00 AM EDT 24048406 Urinary tract Urinary Tract Problem 01/23/2019 [facility] infectious disease Infection 12:00:00 AM ([facility] (disorder) EDT - Neighborhood 10/14/[address] [facility]) 12:00:00 AM EDT 44870465 Urinary tract Urinary Tract Problem 01/23/2019 [facility] infectious disease Infection 12:00:00 AM ([facility] (disorder) EDT - [facility] 10/14/[address] [facility]) 12:00:00 AM EDT Z00.8 Encounter for other ENCOUNTER FOR OTHER Diagnosis [facility] general examination GENERAL EXAMINATION 09:29:0 0 AM Medical Center EDT F17.210 Nicotine dependence, NICOTINE DEPENDENCE, Diagnosis 04/21 [facility] cigarettes, CIGARETTES, 11:04:[address] uncomplicated UNCOMPLICATED EDT I10 Essential (primary) ESSENTIAL (PRIMARY) Diagnosis [facility] hypertension HYPERTENSION 11:04:00 AM Medical C enter EDT F25.8 Other OTHER Diagnosis 04/21/2020 [facility] schizoaffective SCHIZOAFFECTIVE 11:04:00 AM Med ical Center disorders DISORDERS EDT R44.0 Auditory AUDITORY Diagnosis 04/21/2020 [facility] hallucinations HALLUCINATIONS 11:04:00 AM Medic al Center EDT F20.9 Schizophrenia, SCHIZOPHRENIA, Diagnosis 09/03/2019 [facility] unspecified UNSPECIFIED 10:05:[address] EST F43.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 08/19/2019 [facility] stress disorder, STRESS DISORDER, [facility] unspecified UNSPECIFIED EST F29 Unspecified UNSP PSYCHOSIS NOT Diagnosis 08/19/2019 [facility] psychosis not due to DUE TO A SUBSTANCE 07:01:0 0 AM Medical Center a substance or known OR KNOWN PHYSIOL EST physiological COND condition R51 Headache HEADACHE Diagnosis 08/13/2019 [facility] 08:37:00 PM Medical Cente r EST R69 Illness, unspecified ILLNESS, UNSPECIFIED Diagnosis 08/07 [facility] 07:36:00 PM Medical Cente r EST E22.1 Hyperprolactinemia HYPERPROLACTINEMIA Diagnosis [facility] 08:40:00 AM Medical Cente r EST N92.0 Excessive and EXCESSIVE AND Diagnosis 05/13/2019 [facility] frequent FREQUENT 08:47:00 AM Medical Cente r menstruation with MENSTRUATION WITH EDT regular cycle REGULAR CYCLE N64.52 Nipple discharge NIPPLE DISCHARGE Diagnosis 05/13/2019 [facility] 08:47:00 AM Medical Cente r EDT Surgeries/Procedures Procedure Description Date Indications Data Source(s) No prior serious illness No prior serious HULL ([facility] illness 0 Hal 12:00:00 [facility]) History of Eyes: normal History of Eyes: HULL ([facility] normal 0 Hal 12:00:00 [facility]) Date of last menstruation Date of last GR EENWAY ([facility] menstruation 0 Hal 12:00:00 [facility]) No history of surgery No history of surgery [facility] ([facility] 0 Hal 12:00:00 [facility]) Individual Psychotherapy NEX TGEN ([facility] (30 Min) 0 [facility] 12:00:00 Center) AM EDT - 0 12:00:00 AM EDT Individual Psychotherapy NEX TGEN ([facility] (30 Min) 0 [facility] 12:00:00 Center) AM EDT - 0 12:00:00 AM EDT Psychotherapy (30 Mins) NEXT GEN ([facility] W/ E&M 0 [facility] 12:00:00 Center) AM EDT - 0 12:00:00 AM EDT OFFICE/OUTPATIENT VISIT, NEX TGEN ([facility] EST 0 [facility] 12:00:00 Center) AM EDT - 0 12:00:00 AM EDT Individual Psychotherapy NEX TGEN ([facility] (30 Min) 0 [facility] 12:00:00 Center) AM EDT - 0 12:00:00 AM EDT Individual Psychotherapy NEX TGEN ([facility] (30 Min) 0 [facility] 12:00:00 Center) AM EDT - 0 12:00:00 AM EDT Psychotherapy (30 Mins) NEXT GEN ([facility] W/ E&M 0 [facility] 12:00:00 Center) AM EDT - 0 12:00:00 AM EDT OFFICE/OUTPATIENT VISIT, NEX TGEN ([facility] EST 0 [facility] 12:00:00 Center) AM EDT - 0 12:00:00 AM EDT Para 3 Para 3 [facility] ([facility] 12:00:00 [facility]) LMP: 10/14/2019 LMP: 10/14/2019 [facility] ([facility] 0 Hal 12:00:00 [facility]) 6 6 [place] ([facility] 12:00:00 [facility]) Bmi is documented above BMI > NORMAL [facility] ENWAY ([facility] normal parameters and a DOCUMENTED W F/U PLAN 0 Hal follow-up plan is 12:00:[address] [facility]) No history of surgery No history of surgery [place] ([facility] 0 [facility] 12:00:00 [facility]) URINALYSIS MICROSCOPIC URINALYSIS MICROSCOPIC [place] ([facility] 0 Hal 12:00:00 [facility]) Individual Psychotherapy NEX TGEN ([facility] (45 Min) 0 [facility] 12:00:00 Center) AM EST - 0 12:00:00 AM EST Individual Psychotherapy NEX TGEN ([facility] (30 Min) 0 [facility] 12:00:00 [place]) AM EST - 0 12:00:00 AM EST Psychotherapy (30 Mins) NEXT GEN ([facility] W/ E&M 0 [facility] 12:00:00 Center) AM EST - 0 12:00:00 AM EST OFFICE/OUTPATIENT VISIT, NEX TGEN ([address] 12:00:00 [place]) AM EST - 0 12:00:00 AM EST Initial Eval W/ Med NEXTGEN ([facility] Services 0 [facility] 12:00:00 Center) AM EST - 0 12:00:00 AM EST Individual Psychotherapy NEX TGEN ([facility] (30 Min) 0 [facility] 12:00:00 Center) AM EST - 0 12:00:00 AM EST Individual Psychotherapy NEX TGEN ([facility] (45 Min) 0 [facility] 12:00:00 [place]) AM EST - 0 12:00:00 AM EST Para 3 Para 3 [facility] ([facility] 0 Hal 12:00:00 [facility]) LMP: 08/29/2019 LMP: 08/29/2019 AMRTA ([facility] 0 Hal 12:00:00 [facility]) 6 6 MARTA ([facility] 0 Hal 12:00:00 [facility]) Psychiatric Diagnostic NEXTG EN ([facility] Interview (45+ Min) 0 [facility] 12:00:00 [place]) AM EST - 0 12:00:00 AM EST Result: normal Result: normal [facility] ([facility] 0 Hal 12:00:00 [facility]) Contraception: Contraception: [facility] ([facility] 0 Hal 12:00:00 [facility]) Bmi is documented above BMI > NORMAL [facility] ENWAY ([facility] normal parameters and a DOCUMENTED W F/U PLAN 0 Hal follow-up plan is 12:00:00 [facility]) EVC-EXCT-PCKSHIWN QIA-BFBI-VCFCKLZC [address] ([facility] 0 Hal 12:00:00 [facility]) URINALYSIS MICROSCOPIC URINALYSIS MICROSCOPIC [place] ([facility] 0 Hal 12:00:00 [facility]) VITAMIN D 25 - HYDROXY VITAMIN D 25 - G REENWAY ([facility] HYDROXY 0 Hal 12:00:00 [facility]) METABOLIC PANEL COMPREHE METABOLIC PANEL [facility] ([facility] COMPREHE 0 Hal 12:00:00 [facility]) URINE C AND S URINE C AND S HULL ([facility] 0 Hal 12:00:00 [facility]) Wet [place] eCW2 ([facility] CHLAMYDIA, ROMAN eCW2 (Planned 0 Parenthood - 12:00:00 [facility] [employer]) GONORRHEA, ROMAN eCW2 (Planned 0 Parenthood - 12:00:00 [facility] [employer]) Test eCW2 (Planned 0 Parenthood - 12:00:00 [facility] [employer]) SPECIMEN HANDLING eCW2 (Plan sara 0 Parenthood - 12:00:00 [facility] [employer]) Injection, eCW2 (Planned medroxyprogesterone 0 Parentho od - acetate, 1 mg 12:00:00 [facility] AM [employer]) INJECTION IM/SC eCW2 (Planne d 0 Parenthood - 12:00:00 [facility]man [facility] AM [employer]) Result: abnormal Result: abnormal [facility] ([facility] 9 Hal 12:00:00 [facility]) Last pap smear date Last pap smear date G BERTO ([facility] 04/10/2019 04/10/2019 9 Hal 12:00:00 [facility]) Last mammogram date: Last mammogram date: [facility] ([facility] 05/13/2019 05/13/2019 9 Hal 12:00:00 [facility]) History of anxiety History of anxiety GRE ENWAY ([facility] disorder NOS h/o disorder NOS h/o 9 Verno n hallucinations hallucinations 12:00:00 [facility]) galactorrhea galactorrhea [facility] ([facility] 9 Hal 12:00:00 [facility]) Surgical / procedural Surgical / procedural H[facility] ([facility] history none history none 9 Hal 12:00:00 [facility]) CARCINOEMBRYONIC ANTIGEN CARCINOEMBRYONIC [place] ([facility] (CEA) ANTIGEN (CEA) 9 Hal 12:00:00 [facility]) CA 19 - 9 CA 19 - 9 [facility] ([facility] 9 Hal 12:00:00 [facility]) CA 125 CA 125 MARTA ([facility] 9 Hal 12:00:00 [facility]) THYROXINE FREE (FT4) THYROXINE FREE (FT4) MARTA ([facility] 9 Hal 12:00:00 [facility]) FT-3 FREE TRIDOTHYRONIN FT-3 FREE ALEN CARRILLO ([facility] TRIDOTHYRONIN 9 Hal 12:00:00 [facility]) TSH-THYROID STIMULATING TSH-THYROID GREE NWPEREZ ([facility] STIMULATING 9 Hal 12:00:00 [facility]) LACTATE DEHYDROGENASE LACTATE DEHYDROGENASE [facility]ARTA ([facility] (LD) (LDH) (LD) (LDH) 9 Hal 12:00:00 [facility]) Bmi documented outside BMI OUTSIDE NORMAL [place] ([facility] normal parameters, no RANGE - NO F/U PLAN 9 Hal follow-up plan 12:00:00 Neighborhood documented, no reason [facility]) given PREGNANGY TEST BIOCEPT PREGNANGY TEST BIOCEPT [facility] ([facility] 9 Hal 12:00:00 [facility]) AFP (ALPHA FETOPROTEIN) AFP (ALPHA GREE NWAY ([facility] FETOPROTEIN) 9 Hal 12:00:00 [facility]) Result: normal Result: normal [facility] ([facility] 9 Hal 12:00:00 [facility]) Para 3 Para 3 [facility] ([facility] 9 Hal 12:00:00 [facility]) LMP: 04/16/2019 LMP: 04/16/2019 [facility] ([facility] 9 Hal 12:00:00 [facility]) AFP (ALPHA FETOPROTEIN) AFP (ALPHA GREE NWAY ([facility] FETOPROTEIN) 9 Hal 12:00:00 [facility]) LACTATE DEHYDROGENASE LACTATE DEHYDROGENASE [facility]ARTA ([facility] (LD) (LDH) (LD) (LDH) 9 Hal 12:00:00 [facility]) PREGNANGY TEST BIOCEPT PREGNANGY TEST BIOCEPT MARTA ([facility] 9 Hal 12:00:00 [facility]) CARCINOEMBRYONIC ANTIGEN CARCINOEMBRYONIC [place]ARTA ([facility] (CEA) ANTIGEN (CEA) 9 Hal 12:00:00 [facility]) CA 19 - 9 CA 19 - 9 MARTA ([facility] 9 Hal 12:00:00 [facility]) CA 125 CA 125 [place]ARTA ([facility] 9 Hal 12:00:00 [facility]) THYROXINE FREE (FT4) THYROXINE FREE (FT4) [facility]ARTA ([facility] 9 Hal 12:00:00 [facility]) FT-3 FREE TRIDOTHYRONIN FT-3 FREE GREE NWPEREZ ([facility] TRIDOTHYRONIN 9 Hal 12:00:00 [facility]) TSH-THYROID STIMULATING TSH-THYROID GREJluis NWPEREZ ([facility] STIMULATING 9 Hal 12:00:00 [facility]) Bmi documented outside BMI OUTSIDE NORMAL MARTA ([facility] normal parameters, no RANGE - NO F/U PLAN 9 Hal follow-up plan 12:00:00 Neighborhood documented, no reason [facility]) given No intolerance to milk No intolerance to milk MARTA ([facility] products products 9 Hal 12:00:00 [facility]) VITAMIN D 25 - HYDROXY VITAMIN D 25 - G REENWAY ([facility] HYDROXY 9 Hal 12:00:00 [facility]) NUTRITION THERAPY INITIAL NUTRITION THERAPY MARTA ([facility] INITIAL 9 Hal 12:00:00 [facility]) Bmi documented outside BMI OUTSIDE NORMAL MARTA ([facility] normal parameters, no RANGE - NO F/U PLAN 9 Hal follow-up plan 12:00:00 Neighborhood documented, no reason [facility]) given Bmi documented outside BMI OUTSIDE NORMAL MARTA ([facility] normal parameters, no RANGE - NO F/U PLAN 9 Hal follow-up plan 12:00:00 Neighborhood documented, no reason [facility]) given NUTRITION THERAPY INITIAL NUTRITION THERAPY MARTA ([facility] INITIAL 9 Hal 12:00:00 [facility]) No recent change in No recent change in G HAIDERWAY ([facility] medical history medical history 9 Hal 12:00:00 [facility]) History of obesity History of obesity [facility] ([facility] 9 Hal 12:00:00 [facility]) Aborta 7 Aborta 7 HULL ([facility] 9 Hal 12:00:00 [facility]) PROLACTIN PROLACTIN HULL ([facility] 9 Hal 12:00:00 [facility]) [id number] [facility] ([facility] 9 Hal 12:00:00 [facility]) TSH-THYROID STIMULATING TSH-THYROID ALEN NWPEREZ ([facility] STIMULATING 9 Hal 12:00:00 [facility]) Not using contraception Not using ALEN NWPEREZ ([facility] contraception 9 Hal 12:00:00 [facility]) 10 10 HULL ([facility] 9 Hal 12:00:00 [facility]) Result: normal Result: normal HULL (M ount 9 Hal 12:00:00 [facility]) Para 3 Para 3 HULL ([facility] 9 Hal 12:00:00 [facility]) LMP: 04/01/2019 LMP: 04/01/2019 HULL (M [facility]unt 9 Hal 12:00:00 [facility]) History of anxiety History of anxiety [facility] ([facility] disorder NOS PTSD disorder NOS PTSD 9 Bony non 12:00:00 [facility]) 05/03/28 ~history of 05/03/28 ~history of Stacy THOMSON ([facility] ovarian cysts ovarian cysts 9 Hal 12:00:00 [facility]) No prior serious illness No prior serious HULL ([facility] illness 9 Hal 12:00:00 [facility]) Bmi is documented above BMI > NORMAL [facility] ([facility] normal parameters and a DOCUMENTED W F/U PLAN 9 Hal follow-up plan is 12:00:00 [place] [facility]) Results ID Date Data Source Urinalysis.[id number] 04/23/2020 11:44:00 AM [facility] 0 Name Value Range Interpretation Description Data Sup porting Code Source(s) Document(s ) Color of Urine YELLOW <content Saint styleCode="[facility] d">Color, Medical Urine Center </content>BROW N <content styleCode="Ratna lics"> (YELLOW )</content> Glucose NEGATIVE <content Saint [Mass/volume] styleCode="Amy Zhangs in Urine by d">Urine Medical Test strip Glucose Center </content>NEGA TIVE MG/DL<content styleCode="Ratna lics"> (NEGATIVE MG/DL)</conten t> UNK CLEAR <content Saint styleCode="[facility] d">Urine Medical Clarity Center </content>CLOU DY <content styleCode="Ratna lics"> (CLEAR )</content> UNK NEGATIVE <content Saint styleCode="Amy Pam d">Urine Medical Bilirubin Center </content>SMAL L <content styleCode="Ratna lics"> (NEGATIVE )</content> Ketones NEGATIVE <content Saint [Mass/volume] styleCode="Amy Pam in Urine by d">Urine Medical Test strip Ketone Center </content>15 MG/DL<content styleCode="Ratna lics"> (NEGATIVE MG/DL)</conten t> Hemoglobin NEGATIVE <content Saint [Presence] in styleCode="Amy Zhangs Urine by Test d">Urine Blood Medical strip </content>LARG Center E <content styleCode="Ratna lics"> (NEGATIVE )</content> Specific 1.015-1.02 Above high <content Saint gravity of 5 normal styleCode="Amy Zhangs Urine by Test d">Urine Medical strip Specific Center [place] </content>>= 1.030 H<content styleCode="Ratna lics"> (1.015-1.025 )</content> pH of Urine by 4.5-8.0 <content Saint Test strip styleCode="Amy Pam d">Urine pH Medical </content>5.5 Center <content styleCode="Ratna lics"> (4.5-8.0 )</content> Protein NEGATIVE <content Saint [Mass/volume] styleCode="Amy Pam in Urine by d">Urine Medical Test strip Protein Center </content>30 MG/DL<content styleCode="Ratna lics"> (NEGATIVE MG/DL)</conten t> Urobilinogen 0.2-1.0 <content Saint [Units/volume] styleCode="Amy Pam in Urine by d">Urine Medical Test strip Urobilinogen Center </content>0.2 MG/DL<content styleCode="Ratna lics"> (0.2-1.0 MG/DL)</conten t> Nitrite NEGATIVE <content Saint [Presence] in styleCode="Amy Zhangs Urine by Test d">Urine Medical strip Nitrite Center </content>NEGA TIVE <content styleCode="Ratna lics"> (NEGATIVE )</content> UNK 0-3 <content Saint styleCode="Amy Pam d">Urine Red Medical Blood Cell Center </content>>200 HPF<content styleCode="Ratna lics"> (0-3 HPF)</content> Leukocyte NEGATIVE <content Saint esterase styleCode="Amy Zhangs [Presence] in d">Urine Medical Urine by Test Leukocyte Center strip </content>NEGA TIVE <content styleCode="Ratna lics"> (NEGATIVE )</content> UNK 0-3 <content Saint styleCode="Amy Pam d">Urine White Medical Blood Cell Center </content>0-3 HPF<content styleCode="Ratna lics"> (0-3 HPF)</content> UNK NONE SEEN <content Saint styleCode="Amy Pam d">Epithelial Medical Cell Center </content>2-5 HPF<content styleCode="Ratna lics"> (NONE SEEN HPF)</content> ID Date Data Source CHMROUTINECCDA.[id number] 04/23/2020 11:44:00 AM EDT [facility] -0400 Name Value Range Interpretation Description Data Sup porting Code Source(s) Document(s ) Cannabinoids <content Saint [Presence] in styleCode="[facility] Urine by Screen d">Cannabinoid Medical method >50 ng/mL s Center </content>NEGA TIVE NG/ML (Reference Range: not available)<br/ > ID Date Data Source Liver 04/23/2020 10:15:00 AM EDT [facility] Profile.[id number] Name Value Range Interpretation Description Data Sup porting Code Source(s) Document(s ) Aspartate 14-36 <content [facility] aminotransferase styleCode="Bold"> [facility] [Enzymatic Aspartate Medical activity/volume] Aminotransferase Center in Serum or Plasma (AST) </content>24 IU/L<content styleCode="Italic s"> (14-36 IU/L)</content> Alanine 7-30 <content [facility] aminotransferase styleCode="Bold"> [facility] [Enzymatic Alanine Medical activity/volume] Aminotransferase Center in Serum or Plasma (ALT) </content>19 IU/L<content styleCode="Italic s"> (7-30 IU/L)</content> Alkaline 38-126 <content [facility] phosphatase styleCode="Bold"> Pam [Enzymatic Alkaline Medical activity/volume] Phosphatase (ALP) Cente r in Serum or Plasma </content>84 IU/L<content styleCode="Italic s"> (38-126 IU/L)</content> Bilirubin.total 0.2-1.3 <content [facility] [Mass/volume] in styleCode="Bold"> [facility] Serum or Plasma Bilirubin Total Medical </content>0.3 Center MG/DL<content styleCode="Italic s"> (0.2-1.3 MG/DL)</content> UNK 0.0-0.3 <content Saint styleCode="Bold"> Pam Bilirubin, Direct Medical </content>< 0.2 Center MG/DL<content styleCode="Italic s"> (0.0-0.3 MG/DL)</content> Albumin 3.5-5.0 <content Saint [Mass/volume] in styleCode="Bold"> [facility] Serum or Plasma Albumin Medical </content>4.5 Center G/DL<content styleCode="Italic s"> (3.5-5.0 G/DL)</content> ID Date Data Source Hormones.[id number] 04/23/2020 10:15:00 AM EDT [facility] Name Value Range Interpretation Description Data Sup porting Code Source(s) Document(s ) Thyrotropin 0.465-4. <content Saint [Units/volume] 68 styleCode="Amy Pam in Serum or d">Thyroid Medical Plasma by Stimulating Center Detection Hormone limit <= 0.05 </content>1.38 mIU/L MIU/L<content styleCode="Ratna lics"> (0.465-4.68 MIU/L)</conten t> ID Date Data Source HematologyRou.[id number] 04/23/2020 10:15:00 AM EDT [facility] 0400 Name Value Range Interpretation Description Data Sup porting Code Source(s) Document(s ) Leukocytes 4.4-11.0 <content Saint [#/volume] in styleCode="Bold Pam Blood by ">White Blood Medical Automated count Cell Count Center </content>5.37 KCUMM<content styleCode="Ital ics"> (4.4-11.0 KCUMM)</content > Erythrocytes 4.0-5.1 <content Saint [#/volume] in styleCode="Bold Pam Blood by ">Red Blood Medical Automated count Cell Count Center </content>4.12 MCUMM<content styleCode="Ital ics"> (4.0-5.1 MCUMM)</content > Hemoglobin 12.3-16. <content Saint [Mass/volume] in 0 styleCode="Bold Pam Blood ">Hemoglobin Medical </content>12.5 Center G/DL<content styleCode="Ital ics"> (12.3-16.0 G/DL)</content> Hematocrit 36.0-46. <content Saint [Volume 0 styleCode="Bold Pam Fraction] of ">Hematocrit Medical Blood by </content>37.3 Center Automated count %<content styleCode="Ital ics"> (36.0-46.0 %)</content> Erythrocyte mean 32.0-37. <content Saint corpuscular 0 styleCode="Bold Pam hemoglobin ">Mean Corpus. Medical concentration Hgb Center [Mass/volume] by Concentration Automated count (MCHC) </content>33.5 G/DL<content styleCode="Ital ics"> (32.0-37.0 G/DL)</content> Erythrocyte mean 80.0-100 <content Saint corpuscular .0 styleCode="Bold Pam volume [Entitic ">Mean Medical volume] by Corpuscular Center Automated count Volume </content>90.5 FL<content styleCode="Ital ics"> (80.0-100.0 FL)</content> Erythrocyte mean 26.0-34. <content Saint corpuscular 0 styleCode="Bold Pam hemoglobin ">Mean Medical [Entitic mass] Corposcular Center by Automated Hemoglobin count </content>30.3 PG<content styleCode="Ital ics"> (26.0-34.0 PG)</content> Platelet mean 8.0-11.0 <content Saint volume [Entitic styleCode="Bold Pam volume] in Blood ">Mean Platelet Medical by Automated Volume Center count </content>10.7 FL<content styleCode="Ital ics"> (8.0-11.0 FL)</content> Platelets 130-400 <content Saint [#/volume] in styleCode="Bold Pam Blood by ">Platelet Medical Automated count Count Center </content>266 KCUMM<content styleCode="Ital ics"> (130-400 KCUMM)</content > Erythrocyte 11.5-14. <content Saint distribution 5 styleCode="Bold Pam width [Ratio] by ">Red Cell Medical Automated count Distribution Center Width </content>12.0 %<content styleCode="Ital ics"> (11.5-14.5 %)</content> UNK 0.0 <content Saint styleCode="Bold Pam ">Nucleated Red Medical Blood Cell Center Count </content>0.00 KCUMM<content styleCode="Ital ics"> (0.0 KCUMM)</content > UNK 0 <content Saint styleCode="Bold Pam ">Nucleated Red Medical Blood Cell Center </content>0.0 /100<content styleCode="Ital ics"> (0 /100)</content> ID Date Data Source GFR(Creatinine).[id number] 04/23/2020 10:15:00 AM EDT [facility] 0-0400 Name Value Range Interpretation Code Description Data Leidy rce(s) Supporting Document(s ) UNK > 60 <content [facility] styleCode="Bold"> Medical Cent er EGFR </content>124 GFR<content styleCode="Italic s"> (> 60 GFR)</content> ID Date Data Source [facility].[id number] 04/23/2020 10:15:00 AM EDT [facility] Name Value Range Interpretation Description Data Sup porting Code Source(s) Document(s ) Chloride 98-107 <content Saint [Moles/volume] in styleCode="Bold"> [facility] Serum or Plasma Chloride Medical </content>106 Center MEQ/L<content styleCode="Italic s"> (98-107 MEQ/L)</content> Potassium 3.5-5.3 <content Saint [Moles/volume] in styleCode="Bold"> [facility] Serum or Plasma Potassium Medical </content>3.9 Center MEQ/L<content styleCode="Italic s"> (3.5-5.3 MEQ/L)</content> Sodium 137-145 <content Saint [Moles/volume] in styleCode="Bold"> [facility] Serum or Plasma Sodium Medical </content>138 Center MEQ/L<content styleCode="Italic s"> (137-145 MEQ/L)</content> UNK 7-17 Below low <content Saint normal styleCode="Bold"> Pam BUN </content>6 Medical MG/DL L<content Center styleCode="Italic s"> (7-17 MG/DL)</content> Carbon dioxide, 22-30 <content Saint total styleCode="Bold"> Pam [Moles/volume] in Carbon Dioxide Medical Serum or Plasma </content>24 Center MEQ/L<content styleCode="Italic s"> (22-30 MEQ/L)</content> Calcium 8.4-10. <content Saint [Mass/volume] in 2 styleCode="Bold"> [facility] Serum or Plasma Calcium Medical </content>9.6 Center MG/DL<content styleCode="Italic s"> (8.4-10.2 MG/DL)</content> Glucose 74-106 <content Saint [Mass/volume] in styleCode="Bold"> [facility] Serum or Plasma Glucose Medical </content>91 Center MG/DL<content styleCode="Italic s"> (74-106 MG/DL)</content> Creatinine 0.5-1.3 <content Saint [Mass/volume] in styleCode="Bold"> [facility] Serum or Plasma Creatinine Medical </content>0.7 Center MG/DL<content styleCode="Italic s"> (0.5-1.3 MG/DL)</content> Alkaline 38-126 <content Saint phosphatase styleCode="Bold"> Pam [Enzymatic Alkaline Medical activity/volume] Phosphatase (ALP) Cente r in Serum or Plasma </content>84 IU/L<content styleCode="Italic s"> (38-126 IU/L)</content> Alanine 7-30 <content [facility] aminotransferase styleCode="Bold"> [facility] [Enzymatic Alanine Medical activity/volume] Aminotransferase Center in Serum or Plasma (ALT) </content>19 IU/L<content styleCode="Italic s"> (7-30 IU/L)</content> UNK > 60 <content Saint styleCode="Bold"> Pam EGFR Medical </content>124 Center GFR<content styleCode="Italic s"> (> 60 GFR)</content> Aspartate 14-36 <content [facility] aminotransferase styleCode="Bold"> [facility] [Enzymatic Aspartate Medical activity/volume] Aminotransferase Center in Serum or Plasma (AST) </content>24 IU/L<content styleCode="Italic s"> (14-36 IU/L)</content> Albumin 3.5-5.0 <content Saint [Mass/volume] in styleCode="Bold"> [facility] Serum or Plasma Albumin Medical </content>4.5 Center G/DL<content styleCode="Italic s"> (3.5-5.0 G/DL)</content> Bilirubin.total 0.2-1.3 <content [facility] [Mass/volume] in styleCode="Bold"> [facility] Serum or Plasma Bilirubin Total Medical </content>0.3 Center MG/DL<content styleCode="Italic s"> (0.2-1.3 MG/DL)</content> ID Date Data Source [id number] 04/23/2020 12:00:00 AM EDT [facility] Name Value Range Interpretation Code Description Data Leidy rce(s) Supporting Document(s ) 2019-nCoV [place] RNA XXX ROMAN+probe- Imp This lab was ordered by [facility] and reported by [facility]. ID Date Data Source Liver 04/21/2020 12:04:00 PM EDT [facility] Profile.[id number] Name Value Range Interpretation Description Data Sup porting Code Source(s) Document(s ) Aspartate 14-36 <content [facility] aminotransferase styleCode="Bold"> [facility] [Enzymatic Aspartate Medical activity/volume] Aminotransferase Center in Serum or Plasma (AST) </content>25 IU/L<content styleCode="Italic s"> (14-36 IU/L)</content> Alanine 7-30 <content [facility] aminotransferase styleCode="Bold"> [facility] [Enzymatic Alanine Medical activity/volume] Aminotransferase Center in Serum or Plasma (ALT) </content>22 IU/L<content styleCode="Italic s"> (7-30 IU/L)</content> Bilirubin.total 0.2-1.3 <content Saint [Mass/volume] in styleCode="Bold"> [facility] Serum or Plasma Bilirubin Total Medical </content>0.4 Center MG/DL<content styleCode="Italic s"> (0.2-1.3 MG/DL)</content> Alkaline 38-126 <content Saint phosphatase styleCode="Bold"> Pam [Enzymatic Alkaline Medical activity/volume] Phosphatase (ALP) Cente r in Serum or Plasma </content>87 IU/L<content styleCode="Italic s"> (38-126 IU/L)</content> Albumin 3.5-5.0 <content Saint [Mass/volume] in styleCode="Bold"> [facility] Serum or Plasma Albumin Medical </content>4.4 Center G/DL<content styleCode="Italic s"> (3.5-5.0 G/DL)</content> UNK 0.0-0.3 <content Saint styleCode="Bold"> Pam Bilirubin, Direct Medical </content>< 0.2 Center MG/DL<content styleCode="Italic s"> (0.0-0.3 MG/DL)</content> ID Date Data Source LIPID.[id number] 04/21/2020 12:04:00 PM EDT [facility] Name Value Range Interpretation Description Data Sup porting Code Source(s) Document(s ) Triglyceride < 150 <content Saint [Mass/volume] in styleCode="Amy Pam Serum or Plasma d">Triglycerid [facility] Center </content>68 MG/DL<content styleCode="Ratna lics"> (< 150 MG/DL)</conten t> UNK > 60 Below low normal <content Saint styleCode="Amy Pam d">HDL- Medical Cholesterol Center </content>42 MG/DL L<content styleCode="Ratna lics"> (> 60 MG/DL)</conten t> Cholesterol -<200 <content Saint [Mass/volume] in styleCode="Amy Pam Serum or Plasma d">Cholesterol Medical </content>198 Center MG/DL<content styleCode="Ratna lics"> (-<200 MG/DL)</conten t> UNK < 100 Above high normal <content Saint styleCode="Amy Pam d">LDL-Cholest [facility] [place] </content>142 MG/DL H<content styleCode="Ratna lics"> (< 100 MG/DL)</conten t> ID Date Data Source HematologyRou.[id number] 04/21/2020 12:04:00 PM EDT [facility] 0400 Name Value Range Interpretation Description Data Sup porting Code Source(s) Document(s ) Erythrocytes 4.0-5.1 <content Saint [#/volume] in styleCode="Bold Pam Blood by ">Red Blood Medical Automated count Cell Count Center </content>4.13 MCUMM<content styleCode="Ital ics"> (4.0-5.1 MCUMM)</content > Leukocytes 4.4-11.0 <content Saint [#/volume] in styleCode="Bold Pam Blood by ">White Blood Medical Automated count Cell Count Center </content>6.47 KCUMM<content styleCode="Ital ics"> (4.4-11.0 KCUMM)</content > Hemoglobin 12.3-16. <content Saint [Mass/volume] in 0 styleCode="Bold Pam Blood ">Hemoglobin Medical </content>12.6 Center G/DL<content styleCode="Ital ics"> (12.3-16.0 G/DL)</content> Erythrocyte mean 80.0-100 <content Saint corpuscular .0 styleCode="Bold Pam volume [Entitic ">Mean Medical volume] by Corpuscular Center Automated count Volume </content>90.6 FL<content styleCode="Ital ics"> (80.0-100.0 FL)</content> Hematocrit 36.0-46. <content Saint [Volume 0 styleCode="Bold Pam Fraction] of ">Hematocrit Medical Blood by </content>37.4 Center Automated count %<content styleCode="Ital ics"> (36.0-46.0 %)</content> Erythrocyte mean 32.0-37. <content Saint corpuscular 0 styleCode="Bold Pam hemoglobin ">Mean Corpus. Medical concentration Hgb Center [Mass/volume] by Concentration Automated count (MCHC) </content>33.7 G/DL<content styleCode="Ital ics"> (32.0-37.0 G/DL)</content> Erythrocyte mean 26.0-34. <content Saint corpuscular 0 styleCode="Bold Pam hemoglobin ">Mean Medical [Entitic mass] Corposcular Center by Automated Hemoglobin count </content>30.5 PG<content styleCode="Ital ics"> (26.0-34.0 PG)</content> Erythrocyte 11.5-14. <content Saint distribution 5 styleCode="Bold Pam width [Ratio] by ">Red Cell Medical Automated count Distribution Center Width </content>12.0 %<content styleCode="Ital ics"> (11.5-14.5 %)</content> Platelets 130-400 <content Saint [#/volume] in styleCode="Bold Pam Blood by ">Platelet Medical Automated count Count Center </content>283 KCUMM<content styleCode="Ital ics"> (130-400 KCUMM)</content > UNK 0 <content Saint styleCode="Bold Pam ">Nucleated Red Medical Blood Cell Center </content>0.0 /100<content styleCode="Ital ics"> (0 /100)</content> Platelet mean 8.0-11.0 <content Saint volume [Entitic styleCode="Bold Pam volume] in Blood ">Mean Platelet Medical by Automated Volume Center count </content>10.3 FL<content styleCode="Ital ics"> (8.0-11.0 FL)</content> UNK 0.0 <content Saint styleCode="Bold Pam ">Nucleated Red Medical Blood Cell Center Count </content>0.00 KCUMM<content styleCode="Ital ics"> (0.0 KCUMM)</content > ID Date Data Source GFR(Creatinine).[id number] 04/21/2020 12:04:00 PM EDT [facility] 0-0400 Name Value Range Interpretation Code Description Data Leidy rce(s) Supporting Document(s ) UNK > 60 <content [facility] styleCode="Bold"> Medical Cent er EGFR </content>124 GFR<content styleCode="Italic s"> (> 60 GFR)</content> ID Date Data [id number] 04/21/2020 12:04:00 PM EDT [facility] -0400 Name Value Range Interpretation Code Description Data Leidy rce(s) Supporting Document(s ) UNK 4.2-5.8 <content [facility] styleCode="Bold" Medical Cente r >Hemoglobin A1C </content>5.3 %<content styleCode="Itali cs"> (4.2-5.8 %)</content> ID Date Data Source BMP.[id number] 04/21/2020 12:04:00 PM EDT [facility] Name Value Range Interpretation Description Data Sup porting Code Source(s) Document(s ) Chloride 98-107 <content Saint [Moles/volume] in styleCode="Bold"> [facility] Serum or Plasma Chloride Medical </content>105 Center MEQ/L<content styleCode="Italic s"> (98-107 MEQ/L)</content> Sodium 137-145 Below low <content Saint [Moles/volume] in normal styleCode="Bold"> [facility] Serum or Plasma Sodium Medical </content>136 Center MEQ/L L<content styleCode="Italic s"> (137-145 MEQ/L)</content> Carbon dioxide, 22-30 <content Saint total styleCode="Bold"> Pam [Moles/volume] in Carbon Dioxide Medical Serum or Plasma </content>22 Center MEQ/L<content styleCode="Italic s"> (22-30 MEQ/L)</content> Potassium 3.5-5.3 <content Saint [Moles/volume] in styleCode="Bold"> [facility] Serum or Plasma Potassium Medical </content>3.8 Center MEQ/L<content styleCode="Italic s"> (3.5-5.3 MEQ/L)</content> Calcium 8.4-10. <content Saint [Mass/volume] in 2 styleCode="Bold"> [facility] Serum or Plasma Calcium Medical </content>9.4 Center MG/DL<content styleCode="Italic s"> (8.4-10.2 MG/DL)</content> Glucose 74-106 <content Saint [Mass/volume] in styleCode="Bold"> [facility] Serum or Plasma Glucose Medical </content>81 Center MG/DL<content styleCode="Italic s"> (74-106 MG/DL)</content> Creatinine 0.5-1.3 <content Saint [Mass/volume] in styleCode="Bold"> [facility] Serum or Plasma Creatinine Medical </content>0.7 Center MG/DL<content styleCode="Italic s"> (0.5-1.3 MG/DL)</content> UNK 7-17 <content Saint styleCode="Bold"> Pam BUN </content>7 Medical MG/DL<content Center styleCode="Italic s"> (7-17 MG/DL)</content> Alkaline 38-126 <content Saint phosphatase styleCode="Bold"> Pam [Enzymatic Alkaline Medical activity/volume] Phosphatase (ALP) Cente r in Serum or Plasma </content>87 IU/L<content styleCode="Italic s"> (38-126 IU/L)</content> Alanine 7-30 <content [facility] aminotransferase styleCode="Bold"> [facility] [Enzymatic Alanine Medical activity/volume] Aminotransferase Center in Serum or Plasma (ALT) </content>22 IU/L<content styleCode="Italic s"> (7-30 IU/L)</content> Aspartate 14-36 <content [facility] aminotransferase styleCode="Bold"> [facility] [Enzymatic Aspartate Medical activity/volume] Aminotransferase Center in Serum or Plasma (AST) </content>25 IU/L<content styleCode="Italic s"> (14-36 IU/L)</content> UNK > 60 <content Saint styleCode="Bold"> Pam EGFR Medical </content>124 Center GFR<content styleCode="Italic s"> (> 60 GFR)</content> Bilirubin.total 0.2-1.3 <content Saint [Mass/volume] in styleCode="Bold"> [facility] Serum or Plasma Bilirubin Total Medical </content>0.4 Center MG/DL<content styleCode="Italic s"> (0.2-1.3 MG/DL)</content> Albumin 3.5-5.0 <content [facility] [Mass/volume] in styleCode="Bold"> [facility] Serum or Plasma Albumin Medical </content>4.4 Center G/DL<content styleCode="Italic s"> (3.5-5.0 G/DL)</content> ID Date Data Source Urinalysis.[id number] 04/21/2020 11:45:00 AM EDT [facility] 0 Name Value Range Interpretation Description Data Sup porting Code Source(s) Document(s ) Color of Urine YELLOW <content Saint styleCode="[facility] d">Color, Medical Urine Center </content>YELL OW <content styleCode="Ratna lics"> (YELLOW )</content> UNK CLEAR <content Saint styleCode="[facility] d">Urine Medical Clarity Center </content>Sl CLOUDY <content styleCode="Ratna lics"> (CLEAR )</content> Glucose NEGATIVE <content Saint [Mass/volume] styleCode="Amy Zhangs in Urine by d">Urine Medical Test strip Glucose Center </content>NEGA TIVE MG/DL<content styleCode="Ratna lics"> (NEGATIVE MG/DL)</conten t> UNK NEGATIVE <content Saint styleCode="Amy Pam d">Urine Medical Bilirubin Center </content>NEGA TIVE <content styleCode="Ratna lics"> (NEGATIVE )</content> Ketones NEGATIVE <content Saint [Mass/volume] styleCode="Amy Pam in Urine by d">Urine Medical Test strip Ketone Center </content>15 MG/DL<content styleCode="Ratna lics"> (NEGATIVE MG/DL)</conten t> Specific 1.015-1.02 <content Saint gravity of 5 styleCode="Amy Zhangs Urine by Test d">Urine Medical strip Specific Center [place] </content>1.02 5 <content styleCode="Ratna lics"> (1.015-1.025 )</content> pH of Urine by 4.5-8.0 <content Saint Test strip styleCode="Amy Pam d">Urine pH Medical </content>6.0 Center <content styleCode="Ratna lics"> (4.5-8.0 )</content> Hemoglobin NEGATIVE <content Saint [Presence] in styleCode="Amy Zhangs Urine by Test d">Urine Blood Medical strip </content>LARG Center E <content styleCode="Ratna lics"> (NEGATIVE )</content> Urobilinogen 0.2-1.0 <content Saint [Units/volume] styleCode="Amy Pam in Urine by d">Urine Medical Test strip Urobilinogen Center </content>0.2 MG/DL<content styleCode="Ratna lics"> (0.2-1.0 MG/DL)</conten t> Protein NEGATIVE <content Saint [Mass/volume] styleCode="Amy Pam in Urine by d">Urine Medical Test strip Protein Center </content>NEGA TIVE MG/DL<content styleCode="Ratna lics"> (NEGATIVE MG/DL)</conten t> Leukocyte NEGATIVE <content Saint esterase styleCode="Amy Zhangs [Presence] in d">Urine Medical Urine by Test Leukocyte Center strip </content>NEGA TIVE <content styleCode="Ratna lics"> (NEGATIVE )</content> Nitrite NEGATIVE <content Saint [Presence] in styleCode="Amy Zhangs Urine by Test d">Urine Medical strip Nitrite Center </content>NEGA TIVE <content styleCode="Ratna lics"> (NEGATIVE )</content> UNK 0-3 <content Saint styleCode="Aym Pam d">Urine White Medical Blood Cell Center </content>0-3 HPF<content styleCode="Ratna lics"> (0-3 HPF)</content> UNK 0-3 <content Saint styleCode="Amy Pam d">Urine Red Medical Blood Cell Center </content>10 - 20 HPF<content styleCode="Ratna lics"> (0-3 HPF)</content> UNK NEGATIVE <content Saint styleCode="Amy Pam d">Urine Medical Bacteria Center </content>FEW HPF<content styleCode="Ratna lics"> (NEGATIVE HPF)</content> UNK NONE SEEN <content Saint styleCode="Amy Pam d">Epithelial Medical Cell Center </content>5 - 10 HPF<content styleCode="Ratna lics"> (NONE SEEN HPF)</content> UNK NONE SEEN <content Saint styleCode="Amy Pam d">Urine Mucus Medical </content>MODE Center RATE HPF<content styleCode="Ratna lics"> (NONE SEEN HPF)</content> ID Date Data Source [id number] 04/21/2020 11:45:00 AM EDT [facility] -0400 Name Value Range Interpretation Description Data Sup porting Code Source(s) Document(s ) Cannabinoids <content Saint [Presence] in styleCode="Amy Pam Urine by Screen d">Cannabinoid Medical method >50 ng/mL s Center </content>NEGA TIVE NG/ML (Reference Range: not available)<br/ > ID Date Data Source [id number] 01/19/2020 11:19:00 AM EDT MARTA ([facility]) Name Value Range Interpretation Description Data Source(s ) Supporting Code Document(s ) Service See Note QuantiFERON MARTA ([facility]) Note: The QuantiFERON-TB Gold Plus resul t is determined by subtractingthe Nil value from either TB antigen (Ag) tube. The mi togen tubeserves as a control for the test. QuantiFERON TB1 Ag 0.07 IU/mL QuantiFERON TB1 Ag G REENWAY ([facility]) QuantiFERON Incubation QuantiFERON MARTA ([facility] Incubation performed. Incubation [facility]) QuantiFERON TB2 Ag 0.06 IU/mL QuantiFERON TB2 Ag G REENWAY ([facility]) QuantiFERON-TB Gold Negative QuantiFERON-TB Gold MARTA ([facility] Plus Plus [facility]) Gamma interferon 0.04 IU/mL QuantiFERON Nil [facility] A[facility] ([facility] background [facility] [Units/volume] in Health Cente r) Blood by Immunoassay QuantiFERON Mitogen >10.00 IU/mL QuantiFERON Mitog en MARTA ([facility] Value Value [facility]) ID Date Data Source [id number] 08/27/2019 12:00:00 AM EST MARTA ([facility]) Name Value Range Interpretation Description Data Source(s ) Supporting Code Document(s ) Bacteria Final Urine MARTA identified in report Culture, ([place] Urine by Routine [facility] Culture [facility]) Bacteria No growth Result 1 MARTA identified in ([place] Urine by [facility] Culture [facility]) ID Date Data Source [id number] 08/27/2019 12:00:00 AM EST MARTA ([facility]) Name Value Range Interpretation Description Data Source(s ) Supporting Code Document(s ) Calcium 9.4 Calcium MARTA ([facility] [Mass/volum mg/dL Hal e] in Serum [facility] or [facility]) Urea 10 mg/dL BUN MARTA ([facility] nitrogen Hal [Mass/volum Neighborhood e] in [facility]) or Plasma Glucose 75 mg/dL Glucose MARTA ([facility] [Mass/volum Hal e] in [facility] or [facility]) Protein 8.0 g/dL Protein, Total MARTA ([facility] [Mass/volum Hal e] in [facility] or [facility]) Albumin 4.9 g/dL Above high normal Albumin MARTA ([facility] [Mass/volum Hal e] in [facility] or [facility]) Note: Ple ase note reference interval change Bilirubin.total 0.2 mg/dL Bilirubin, Total GREENWA Y ([facility] [Mass/volume] in Serum or [facility]) Alkaline phosphatase 83 IU/L Alkaline Phosphatas e MARTA ([facility] [Enzymatic [facility] activity/volume] in [facility] or Plasma Aspartate 17 IU/L AST (SGOT) MARTA ([facility] aminotransferase [facility]) activity/volume] in Serum or Plasma Potassium [Moles/volume] 4.4 mmol/L Potassium GREE NWAY ([facility] in Serum or Plasma [facility]) Chloride [Moles/volume] 103 mmol/L Chloride GREEN WAY ([facility] in Serum or Plasma [facility]) Sodium [Moles/volume] in 139 mmol/L Sodium GREE NWAY ([facility] Serum or Plasma [facility]) Creatinine [Mass/volume] 0.91 mg/dL Creatinine GRE ENWAY ([facility] in Serum or Plasma [facility]) Alanine aminotransferase 16 IU/L ALT (SGPT) CARMENZAE NWAY ([facility] [Enzymatic [facility] activity/volume] in Serum [facility]) or Plasma Carbon dioxide, total 20 mmol/L Carbon Dioxide, GR EENWAY ([facility] [Moles/volume] in Serum Total [facility] or [facility]) Globulin [Mass/volume] in 3.1 g/dL Globulin, Tota l MARTA ([facility] Serum by calculation [facility]) Urea nitrogen/Creatinine 11 BUN/Creatinine Ratio MARTA ([facility] [Mass Ratio] in Serum or [facility][note 2]) Albumin/Globulin [Mass 1.6 A/G Ratio GREENIN Y (Mount Ratio] in Serum or Plasma [facility]) eGFR If NonAfricn Am 83 mL/min/1.73 eGFR If NonAfr icn Am HULL ([facility]) eGFR If Africn Am 96 mL/min/1.73 eGFR If Africn Am HULL ([facility]) ID Date Data Source [id number] 08/27/2019 12:00:00 AM EST MARTA ([facility]) Name Value Range Interpretation Description Data Source(s ) Supporting Code Document(s ) Calcidiol 13.0 Below low normal Vitamin D, MARTA ([facility] unt [Mass/volume ng/mL 25-Hydroxy Hal ] in Serum [facility] or [facility]) Note: Vitamin D deficiency has been defi sara by the [place] [employer] and an Endocrine Society practice guideline as alevel of serum 25-OH vitamin D less than 20 ng/mL (1,2).The Endocrine Society went o n to further define vitamin Dinsufficiency as a level between 21 and 29 ng/mL (2).1. I OM ([place] [employer]). 2010. Dietary reference intakes for calcium and D. [place]: The National Academies Press.2. Jorge PAINTING, Cristy ANTHONY, Krys Garza LEDEZMA, et al. Evaluation, treatment, and prevention of vitamin D deficiency : an Endocrine Society clinical practice guideline. JCEM. 2010; 96(7):1911-30 . ID Date Data Source [id number] 08/07/2019 08:45:00 PM EST [facility] 0 Name Value Range Interpretation Description Data Sup porting Code Source(s) Document(s ) Color of Urine YELLOW <content Saint styleCode="Amy Zhangs d">Color, Medical Urine Center </content>YELL OW <content styleCode="Ratna lics"> (YELLOW )</content> UNK CLEAR <content Saint styleCode="Aym Pam d">Urine Medical Clarity Center </content>AARON R <content styleCode="Ratna lics"> (CLEAR )</content> UNK NEGATIVE <content Saint styleCode="Amy Pam d">Urine Medical Bilirubin Center </content>SMAL L <content styleCode="Ratna lics"> (NEGATIVE )</content> Glucose NEGATIVE <content Saint [Mass/volume] styleCode="Amy Zhangs in Urine by d">Urine Medical Test strip Glucose Center </content>NEGA TIVE MG/DL<content styleCode="Ratna lics"> (NEGATIVE MG/DL)</conten t> Ketones NEGATIVE <content Saint [Mass/volume] styleCode="Amy Zhangs in Urine by d">Urine Medical Test strip Ketone Center </content>>=80 MG/DL<content styleCode="Ratna lics"> (NEGATIVE MG/DL)</conten t> Specific 1.015-1.02 <content Saint gravity of 5 styleCode="Amy Zhangs Urine by Test d">Urine Medical strip Specific Center [place] </content>1.02 0 <content styleCode="Ratna lics"> (1.015-1.025 )</content> Hemoglobin NEGATIVE <content Saint [Presence] in styleCode="Amy Zhangs Urine by Test d">Urine Blood Medical strip </content>TRAC Center E <content styleCode="Ratna lics"> (NEGATIVE )</content> pH of Urine by 4.5-8.0 <content Saint Test strip styleCode="Amy Pam d">Urine pH Medical </content>6.0 Center <content styleCode="Ratna lics"> (4.5-8.0 )</content> Protein NEGATIVE <content Saint [Mass/volume] styleCode="Amy Orozco in Urine by d">Urine Medical Test strip Protein Center </content>NEGA TIVE MG/DL<content styleCode="Ratna lics"> (NEGATIVE MG/DL)</conten t> Urobilinogen 0.2-1.0 <content Saint [Units/volume] styleCode="Amy Zhangs in Urine by d">Urine Medical Test strip Urobilinogen Center </content>0.2 MG/DL<content styleCode="Ratna lics"> (0.2-1.0 MG/DL)</conten t> Nitrite NEGATIVE <content Saint [Presence] in styleCode="Amy Zhangs Urine by Test d">Urine Medical strip Nitrite Center </content>NEGA TIVE <content styleCode="Ratna lics"> (NEGATIVE )</content> Leukocyte NEGATIVE <content Saint esterase styleCode="Amy Orozco [Presence] in d">Urine Medical Urine by Test Leukocyte Center strip </content>NEGA TIVE <content styleCode="Ratna lics"> (NEGATIVE )</content> UNK 0-3 <content Saint styleCode="Amy Pam d">Urine Red Medical Blood Cell Center </content>0-3 HPF<content styleCode="Ratna lics"> (0-3 HPF)</content> UNK NONE SEEN <content Saint styleCode="Amy Pam d">Epithelial Medical Cell Center </content>5 - 10 HPF<content styleCode="Ratna lics"> (NONE SEEN HPF)</content> ID Date Data Source HematologyRou.[id number] 08/07/2019 08:45:00 PM EST [facility] 0500 Name Value Range Interpretation Description Data Sup porting Code Source(s) Document(s ) Leukocytes 4.4-11.0 <content Saint [#/volume] in styleCode="Bold [facility] Blood by ">White Blood Medical Automated count Cell Count Center </content>6.56 KCUMM<content styleCode="Ital ics"> (4.4-11.0 KCUMM)</content > Erythrocytes 4.0-5.1 <content Saint [#/volume] in styleCode="Bold Pam Blood by ">Red Blood Medical Automated count Cell Count Center </content>4.34 MCUMM<content styleCode="Ital ics"> (4.0-5.1 MCUMM)</content > Hemoglobin 12.3-16. <content Saint [Mass/volume] in 0 styleCode="Bold Pam Blood ">Hemoglobin Medical </content>13.4 Center G/DL<content styleCode="Ital ics"> (12.3-16.0 G/DL)</content> Erythrocyte mean 80.0-100 <content Saint corpuscular .0 styleCode="Bold Pam volume [Entitic ">Mean Medical volume] by Corpuscular Center Automated count Volume </content>88.2 FL<content styleCode="Ital ics"> (80.0-100.0 FL)</content> Hematocrit 36.0-46. <content Saint [Volume 0 styleCode="Bold Pam Fraction] of ">Hematocrit Medical Blood by </content>38.3 Center Automated count %<content styleCode="Ital ics"> (36.0-46.0 %)</content> Erythrocyte mean 32.0-37. <content Saint corpuscular 0 styleCode="Bold Pam hemoglobin ">Mean Corpus. Medical concentration Hgb Center [Mass/volume] by Concentration Automated count (MCHC) </content>35.0 G/DL<content styleCode="Ital ics"> (32.0-37.0 G/DL)</content> Erythrocyte mean 26.0-34. <content Saint corpuscular 0 styleCode="Bold Pam hemoglobin ">Mean Medical [Entitic mass] Corposcular Center by Automated Hemoglobin count </content>30.9 PG<content styleCode="Ital ics"> (26.0-34.0 PG)</content> Platelets 130-400 <content Saint [#/volume] in styleCode="Bold Apm Blood by ">Platelet Medical Automated count Count Center </content>253 KCUMM<content styleCode="Ital ics"> (130-400 KCUMM)</content > Erythrocyte 11.5-14. <content Saint distribution 5 styleCode="Bold Pam width [Ratio] by ">Red Cell Medical Automated count Distribution Center Width </content>11.8 %<content styleCode="Ital ics"> (11.5-14.5 %)</content> Platelet mean 8.0-11.0 <content Saint volume [Entitic styleCode="Bold Pam volume] in Blood ">Mean Platelet Medical by Automated Volume Center count </content>10.5 FL<content styleCode="Ital ics"> (8.0-11.0 FL)</content> UNK 0 <content Saint styleCode="Bold Pam ">Nucleated Red Medical Blood Cell Center </content>0.0 /100<content styleCode="Ital ics"> (0 /100)</content> UNK 0.0 <content Saint styleCode="Bold Pam ">Nucleated Red Medical Blood Cell Center Count </content>0.00 KCUMM<content styleCode="Ital ics"> (0.0 KCUMM)</content > ID Date Data Source GFR(Creatinine).[id number] 08/07/2019 08:45:00 PM EST [facility] 0-0500 Name Value Range Interpretation Code Description Data Leidy rce(s) Supporting Document(s ) UNK > 60 <content Saint [facility] styleCode="Bold"> Medical Cent er EGFR </content>124 GFR<content styleCode="Italic s"> (> 60 GFR)</content> ID Date Data Source [id number] 08/07/2019 08:45:00 PM EST [facility] Name Value Range Interpretation Description Data Sup porting Code Source(s) Document(s ) Sodium 137-145 <content Saint [Moles/volume] styleCode="Amy Pam in Serum or d">Sodium Medical Plasma </content>139 Center MEQ/L<content styleCode="Ratna lics"> (137-145 MEQ/L)</conten t> Potassium 3.5-5.3 <content Saint [Moles/volume] styleCode="Amy Zhangs in Serum or d">Potassium Medical Plasma </content>3.5 Center MEQ/L<content styleCode="Ratna lics"> (3.5-5.3 MEQ/L)</conten t> Carbon 22-30 <content Saint dioxide, total styleCode="Amy Pam [Moles/volume] d">Carbon Medical in Serum or Dioxide Center Plasma </content>26 MEQ/L<content styleCode="Ratna lics"> (22-30 MEQ/L)</conten t> Chloride 98-107 <content Saint [Moles/volume] styleCode="Amy Pam in Serum or d">Chloride Medical Plasma </content>102 Center MEQ/L<content styleCode="Ratna lics"> (98-107 MEQ/L)</conten t> Creatinine 0.5-1.3 <content Saint [Mass/volume] styleCode="Amy Pam in Serum or d">Creatinine Medical Plasma </content>0.7 Center MG/DL<content styleCode="Ratna lics"> (0.5-1.3 MG/DL)</conten t> UNK 7-17 <content Saint styleCode="Amy Zhangs d">BUN Medical </content>9 Center MG/DL<content styleCode="Ratna lics"> (7-17 MG/DL)</conten t> Glucose 74-106 <content Saint [Mass/volume] styleCode="Amy Zhangs in Serum or d">Glucose Medical Plasma </content>77 Center MG/DL<content styleCode="Ratna lics"> (74-106 MG/DL)</conten t> Calcium 8.4-10.2 <content Saint [Mass/volume] styleCode="Amy Pam in Serum or d">Calcium Medical Plasma </content>9.8 Center MG/DL<content styleCode="Ratna lics"> (8.4-10.2 MG/DL)</conten t> UNK > 60 <content Saint styleCode="Amy Pam d">EGFR Medical </content>124 Center GFR<content styleCode="Ratna lics"> (> 60 GFR)</content> ID Date Data Source [id number] 04/17/2019 12:00:00 AM GABIT MARTA ([facility]) Name Value Range Interpretation Description Data Source(s ) Supporting Code Document(s ) Calcidiol 19.1 Below low normal Vitamin D, MARTA (Mo unt [Mass/volume ng/mL 25-Hydroxy Hal ] in Serum [facility] or Plasma [facility]) Note: Vitamin D deficiency has been defi sara by the [place] [employer] and an Endocrine Society practice guideline as alevel of serum 25-OH vitamin D less than 20 ng/mL (1,2).The Endocrine Society went o n to further define vitamin Dinsufficiency as a level between 21 and 29 ng/mL (2).1. I OM ([place] [employer]). 2010. Dietary reference intakes for calcium and D. [place]: The National Academies Press.2. Jorge MF, Cristy NC, Krys Garza LEDEZMA, et al. Evaluation, treatment, and prevention of vitamin D deficiency : an Endocrine Society clinical practice guideline. JCEM. 2010; 96(7):1911-30 . ID Date Data Source [id number] 04/10/2019 09:16:00 AM GABIT [facility] Name Value Range Interpretation Description Data Source(s ) Supporting Code Document(s ) Microscopic . . MARTA ([facility] Hal [Identifier] [facility]ighborhood [facility]) specimen by Other stain Note: PAPSMR Note: MARTA ([facility]) Note: The Pap smear is a screening test designed to aid in the detection ofpremalignant and malignant conditions of the uterine cervix. It is not adiagnostic procedure and should not be used as the sole means of detectingcervical cancer. Both false-positive and false-negative report s do occur. Pathology report final See Note DIAGNOSIS: LEYDI TODD ([place] diagnosis Narrative [facility]) Note: NEGATIVE FOR INTRAEPITHELIAL LESIO N OR MALIGNANCY.THIS SPECIMEN WAS RESCREENED PART OF OUR PROJECT ARCHITECT PROGRAM. Statement of adequacy See Note Specimen adequacy: MARTA ([facility]arciso Hong [Interpretation] of Cervical N [facility] or vaginal smear or scraping C enter) by Cyto stain Note: Satisfactory for evaluation. No e ndocervical component is identified.The absence of an endocervical component was confirmed by an additionalscreening evaluation. Patient Access Director who read Cyto See Note Performed by: Stacy THOMSON ([place] stain of Cervical or [facility]) vaginal smear or scraping Note: Fernie Villeda, Cost Control Supervisor (ASC P) Diagnosis ICD code See Note Clinician provided AKSHAT SOLIS ([place] ICD10: [facility]) Note: Z01.419 QC reviewed by: See Nidhi QC reviewed by: MARTA ([facility]) Note: Dany Dodge, Cost Control Supervisor HPV, high-risk Negative HPV, high-risk MARTA ( [facility]) Note: This high-risk HPV test detects th irteen high-risk types(16/18/31/33/35/39/45/51/52/56/58/5 ) without differentiation. Cytology report of IGLPAP Test Methodology: CARMENZA EWING ([place] Cervical or vaginal smear [facility]) or scraping Cyto stain.thin prep Note: This liquid based ThinPrep(R) pap test was screened with theuse of an image guided system. ID Date Data Source [id number] 04/10/2019 12:00:00 AM EDT HULL ([facility]) Name Value Range Interpretation Description Data Source(s ) Supporting Code Document(s ) Prolactin 152.9 Above high normal Prolactin HULL (Mo unt [Mass/volume] ng/mL Hal in Serum or [facility] Plasma [facility]) ID Date Data Source [id number] 04/10/2019 12:00:00 AM EDT MARTA ([facility]) Name Value Range Interpretation Description Data Source(s ) Supporting Code Document(s ) Thyrotropin 1.360 TSH HULL ([facility] [Units/volume] uIU/mL Hal in Serum or [facility] Plasma [facility]) Detection limit <= 0.05 mIU/L Procedure Social History Code Duration Value Status Description Data Source(s ) Smoking 05/03/2020 Current Smoker completed Current Smoker eCW2 ( [facility]) Smoking 04/23/2020 Daily Smoker completed [facility] Sm[facility] 11:[facility] AM [facility] Cent[facility] r EDT Smoking 04/23/2020 Daily Smoker completed Daily Smoker [facility] 09:53:00 AM Medical Cente r EDT Smoking 04/23/2020 Daily Smoker completed Daily Smoker [facility] 09:51:00 AM Medical Cente r EDT Smoking 04/21/2020 Daily Smoker completed Daily Smoker [facility] 12:07:00 PM Medical Cente r EDT Smoking 04/21/2020 Daily Smoker completed Daily Smoker [facility] 11:23:00 AM Medical Cente r EDT Smoking 04/21/2020 Daily Smoker completed Daily Smoker [facility] 11:13:00 AM Medical Cente r EDT Caffeine Use 03/09/2020 completed NEXTGEN ([facility] nt Details 12:00:00 AM [facility]) Smoking 03/09/2020 Unknown if ever completed Unknown if ever NEXT GEN ([facility] 12:00:00 AM smoked smoked [facility]) Smoking 01/19/2020 Ex-smoker completed Ex-smoker MARTA (M[facility] t 03:00:48 PM (finding) (finding) [facility]) Caffeine Use 12/18/2019 completed NEXTGEN ([place] [facility] Details 12:00:00 AM [facility]) Smoking 08/27/2019 Smokes tobacco completed Smokes tobacco GREEN[place] AY ([facility] 10:52:28 AM daily (finding) daily (finding) [facility]) Smoking 08/13/2019 Occasional completed Occasional [facility] 10:35:00 PM Smoker Smoker Medical Cente r EST Smoking 08/13/2019 Occasional completed Occasional [facility] 10:00:00 PM Smoker Smoker Medical Cente r EST Smoking 08/13/2019 Occasional completed Occasional [facility] 09:57:00 PM Smoker Smoker Medical Cente r EST Smoking 08/07/2019 Occasional completed Occasional [facility] 08:32:00 PM Smoker Smoker Medical Cente r EST Smoking 08/07/2019 Occasional completed Occasional [facility] 07:39:00 PM Smoker Smoker Medical Cente r EST Smoking 05/15/2019 Smokes tobacco completed Smokes tobacco GRE[place] A[place] ([place] 01:27:46 PM daily (finding) daily (finding) [facility]) Smoking 04/24/2019 Smokes tobacco completed Smokes tobacco [place] AY ([facility] 09:53:55 AM daily (finding) daily (finding) [facility]) Smoking 04/17/2019 Smokes tobacco completed Smokes tobacco GREEN[place] AY ([facility] 02:26:42 PM daily (finding) daily (finding) [facility]) Vital Signs ID Date Data Source UNK Name Value Range Interpretation Description Data Sour ce(s) Code Diastolic blood 85 mm[Hg] 85 mm[Hg] eCW2 (Rashid nned pressure [facility]) Systolic blood 128 mm[Hg] 128 mm[Hg] eCW2 (Plan sara pressure [facility]) Body mass index 40.72 kg/m2 40.72 kg/m2 eCW2 (P lanned (BMI) [Ratio] [facility]) Body weight 260 [lb_av] 260 [lb_av] eCW2 (Plann ed [facility]) Body height 67 [in_i] 67 [in_i] eCW2 ([facility]) Diastolic blood 93 mmHg 93 mmHg [facility] Systolic blood 129 mmHg 129 mmHg [facility] Respiratory rate 18 bpm 18 bpm [facility] Heart rate 90 bpm 90 bpm [facility] Body temperature 97.2 97.2 [facility] Diastolic blood 91 mmHg 91 mmHg [facility] Systolic blood 132 mmHg 132 mmHg [facility] Respiratory rate 18 bpm 18 bpm [facility] Heart rate 69 bpm 69 bpm [facility] Body temperature 97.7 97.7 [facility] Diastolic blood 92 mmHg 92 mmHg [facility] Systolic blood 129 mmHg 129 mmHg [facility] Respiratory rate 18 bpm 18 bpm [facility] Heart rate 89 bpm 89 bpm [facility] Diastolic blood 93 mmHg 93 mmHg [facility] Systolic blood 127 mmHg 127 mmHg [facility] Respiratory rate 18 bpm 18 bpm [facility] Heart rate 69 bpm 69 bpm [facility] Body temperature 97.7 97.7 [facility] Diastolic blood 93 mmHg 93 mmHg [facility] Systolic blood 128 mmHg 128 mmHg [facility] Respiratory rate 18 bpm 18 bpm [facility] Heart rate 85 bpm 85 bpm [facility] Body temperature 97.9 97.9 [facility] Diastolic blood 90 mmHg 90 mmHg [facility] Systolic blood 135 mmHg 135 mmHg [facility] Respiratory rate 80 bpm 80 bpm [facility] Heart rate 18 bpm 18 bpm [facility] Body temperature 97.9 97.9 [facility] Diastolic blood 92 mm[Hg] 92 mm[Hg] [facility] Systolic blood 145 mm[Hg] 145 mm[Hg] [facility] Body temperature 36.052159 [facility] 36.258955 [facility] Respiratory rate 18 /min 18 /min [facility] Heart rate 76 /min 76 /min [facility] Body temperature 36.242966 [place] 36.172635 Columb[facility] Respiratory rate 18 /min 18 /min [facility] Heart rate 60 /min 60 /min [facility] Diastolic blood 83 mm[Hg] 83 mm[Hg] [facility] Systolic blood 139 mm[Hg] 139 mm[Hg] [facility] [place] Body weight 75.889627 kg 75.820810 kg [facility] Body temperature 36.854258 [facility] 36.483954 [facility] Respiratory rate 18 /min 18 /min [facility] Oxygen 100 % 100 % [facility] saturation in [facility] ter Arterial blood by Pulse oximetry Heart rate 63 /min 63 /min [facility] Body height 170.178681 cm 170.156533 cm [facility] Diastolic blood 98 mm[Hg] 98 mm[Hg] [facility] Systolic blood 138 mm[Hg] 138 mm[Hg] [facility] Body mass index 25.8 kg/m2 25.8 kg/m2 [facility] (BMI) [Ratio] [facility] ter Body temperature 36.159795 [facility] 36.781915 Columb[facility] Respiratory rate 17 /min 17 /min [facility] Oxygen 98 % 98 % [facility] saturation in [facility] ter Arterial blood by Pulse oximetry Heart rate 75 /min 75 /min [facility] Diastolic blood 88 mm[Hg] 88 mm[Hg] [facility] pressure [facility] Systolic blood 132 mm[Hg] 132 mm[Hg] [facility] Body weight 115.434653 kg 115.520314 kg [facility] Body temperature 36.536603 [facility] 36.925716 Columba [facility] Respiratory rate 19 /min 19 /min [facility] Oxygen 99 % 99 % [facility] saturation in [facility] ter Arterial blood by Pulse oximetry Heart rate 70 /min 70 /min [facility] Body height 165.482064 cm 165.647402 cm [facility] Diastolic blood 100 mm[Hg] 100 mm[Hg] [facility] Systolic blood 128 mm[Hg] 128 mm[Hg] [facility] Body mass index 42.1 kg/m2 42.1 kg/m2 [facility] (BMI) [Ratio] [facility] ter Heart rate 86 /min 86 /min [facility] ([facility]) Patient is here to have form filled outl . Diastolic blood pressure 85 mm[Hg] 85 mm[Hg] [facility] ([facility]) Patient is here to have form filled outl . Systolic blood pressure 120 mm[Hg] 120 mm[Hg] [facility] ([facility]) Patient is here to have form filled outl . PhenX - pain, abdominal - type and 0 0 [facility] ([facility]) Patient is here to have form filled outl . Body surface area Derived from 2.23 m2 2.23 m2 [facility] ([facility]) Patient is here to have form filled outl . Body mass index (BMI) 43.1 kg/m2 43.1 kg/m2 [facility] ([place] [Ratio] [facility]) Patient is here to have form filled outl . Body weight 262.0375 [lb_av] 262.0375 [lb_av] [facility] ([facility]) Patient is here to have form filled outl . Body height 65.4 [in_us] 65.4 [in_us] [facility] ([facility]) Patient is here to have form filled outl . Body temperature 98.4 [degF] 98.4 [degF] [facility] [facility] ([facility]) Patient is here to have form filled outl . Heart rate rhythm 1 1 [place] ([facility]) Patient is here to have form filled outl . Heart rate 79 /min 79 /min [facility] ([facility]) Pt presents today for memory loss concer n Diastolic blood pressure 94 mm[Hg] 94 mm[Hg] [facility] ([facility]) Pt presents today for memory loss concer n Systolic blood pressure 138 mm[Hg] 138 mm[Hg] [facility] ([facility]) Pt presents today for memory loss concer n PhenX - pain, abdominal - type and 0 0 [facility] ([facility]) Pt presents today for memory loss concer n Body surface area Derived from 2.17 m2 2.17 m2 [facility] ([facility]) Pt presents today for memory loss concer n Body mass index (BMI) 40.3 kg/m2 40.3 kg/m2 [facility] ([place] [Ratio] [facility]) Pt presents today for memory loss concer n Body weight 245 [lb_av] 245 [lb_av] [facility] ([facility]) Pt presents today for memory loss concer n Body height 65.4 [in_us] 65.4 [in_us] [facility] ([facility]) Pt presents today for memory loss concer n Body temperature 97.7 [degF] 97.7 [degF] [facility] ([facility]) Pt presents today for memory loss concer n Heart rate 71 /min 71 /min [facility] ([facility]) Pt here for results and to speak to the doctor Diastolic blood pressure 94 mm[Hg] 94 mm[Hg] [facility] ([facility]) Pt here for results and to speak to the doctor Systolic blood pressure 135 mm[Hg] 135 mm[Hg] [facility] ([facility]) Pt here for results and to speak to the doctor PhenX - pain, abdominal - type and 0 0 [facility] ([facility]) Pt here for results and to speak to the doctor Body surface area Derived from 2.15 m2 2.15 m2 [facility] ([facility]) Pt here for results and to speak to the doctor Body mass index (BMI) 39.5 kg/m2 39.5 kg/m2 [facility] ([place] [[facility]] [facility]) Pt here for results and to speak to the doctor Body weight 240.375 [lb_av] 240.375 [lb_av] [facility] ([facility]) Pt here for results and to speak to the doctor Body height 65.4 [in_us] 65.4 [in_us] [facility] ([facility]) Pt here for results and to speak to the doctor Body temperature 97.6 [degF] 97.6 [degF] [place] [facility] ([facility]) Pt here for results and to speak to the doctor Heart rate 99 /min 99 /min [facility] ([facility]) pt requests physical therapy referred. Diastolic blood pressure 90 mm[Hg] 90 mm[Hg] [facility] ([facility]) pt requests physical therapy referred. Systolic blood pressure 125 mm[Hg] 125 mm[Hg] [facility] pt requests physical therapy referred. PhenX - pain, abdominal - type and 0 0 [facility] ([facility]) pt requests physical therapy referred. Body surface area Derived from 2.17 m2 2.17 m2 [facility] ([facility]) pt requests physical therapy referred. Body mass index (BMI) 40.6 kg/m2 40.6 kg/m2 [facility] ([place] [[facility]] [facility]) pt requests physical therapy referred. Body weight 247 [lb_av] 247 [lb_av] [facility] ([facility]) pt requests physical therapy referred. Body height 65.4 [in_us] 65.4 [in_us] [facility] ([facility]) pt requests physical therapy referred. Body temperature 98.2 [degF] 98.2 [degF] [place] [facility] ([facility]) pt requests physical therapy referred. Heart rate 69 /min 69 /min [facility] ([facility]) Pt here for follow Up visit Diastolic blood pressure 94 mm[Hg] 94 mm[Hg] [facility] ([facility]) Pt here for follow Up visit Systolic blood pressure 131 mm[Hg] 131 mm[Hg] [facility] ([facility]) Pt here for follow Up visit PhenX - pain, abdominal - type and 0 0 [place] ([facility]) Pt here for follow Up visit Body surface area Derived from 2.15 m2 2.15 m2 [facility] ([facility]) Pt here for follow Up visit Body mass index (BMI) 39.5 kg/m2 39.5 kg/m2 [facility] ([place] [[facility]] [facility]) Pt here for follow Up visit Body weight 240 [lb_av] 240 [lb_av] [facility] ([facility]) Pt here for follow Up visit Body height 65.4 [in_us] 65.4 [in_us] [facility] ([facility]) Pt here for follow Up visit Body temperature 98.1 [degF] 98.1 [degF] [facility] ([facility]) Pt here for follow Up visit Heart rate 74 /min 74 /min [facility] ([facility]) Pt here for problems with periods was to ld by Ms Renato LOPEZ to see the Dr for hormone changes hears voices when she has her pe riod. Diastolic blood pressure 83 mm[Hg] 83 mm[Hg] [facility] ([facility]) Pt here for problems with periods was to ld by Ms Renato LOPEZ to see the Dr for hormone changes hears voices when she has her pe riod. Systolic blood pressure 120 mm[Hg] 120 mm[Hg] [facility] ([facility]) Pt here for problems with periods was to ld by Ms Renato LOPEZ to see the Dr for hormone changes hears voices when she has her pe riod. PhenX - pain, abdominal - type and 0 0 [facility] ([facility]) Pt here for problems with periods was to ld by Ms Renato LOPEZ to see the Dr for hormone changes hears voices when she has her pe riod. Body surface area Derived from 2.16 m2 2.16 m2 [facility] ([facility]) Pt here for problems with periods was to ld by Ms Renato LOPEZ to see the Dr for hormone changes hears voices when she has her pe riod. Body mass index (BMI) 39.9 kg/m2 39.9 kg/m2 [facility] ([place] [Ratio] [facility]) Pt here for problems with periods was to ld by Ms Renato LOPEZ to see the Dr for hormone changes hears voices when she has her pe riod. Body weight 242.5 [lb_av] 242.5 [lb_av] [place] ([facility]) Pt here for problems with periods was to ld by Ms Renato LOPEZ to see the Dr for hormone changes hears voices when she has her pe riod. Body height 65.4 [in_us] 65.4 [in_us] [facility] ([facility]) Pt here for problems with periods was to ld by Ms Renato LOPEZ to see the Dr for hormone changes hears voices when she has her pe riod. Body temperature 98 [degF] 98 [degF] [facility] ([facility]) Pt here for problems with periods was to ld by Ms Renato LOPEZ to see the Dr for hormone changes hears voices when she has her pe riod. Heart rate 75 /min 75 /min [facility] ([facility]) Follow up labs Diastolic blood pressure 90 mm[Hg] 90 mm[Hg] [facility] ([facility]) Follow up labs Systolic blood pressure 133 mm[Hg] 133 mm[Hg] [facility] ([facility]) Follow up labs PhenX - pain, abdominal - type and 0 0 [facility] ([facility]) Follow up labs Body surface area Derived from 2.16 m2 2.16 m2 [facility] ([facility]) Follow up labs Body mass index (BMI) 39.9 kg/m2 39.9 kg/m2 [facility] ([place] [Ratio] [facility]) Follow up labs Body weight 243 [lb_av] 243 [lb_av] [facility] ([facility]) Follow up labs Body height 65.4 [in_us] 65.4 [in_us] [facility] ([facility]) Follow up labs Body temperature 97.7 [degF] 97.7 [degF] [facility]ENTONE[facility]ad [facility] ([facility]) Follow up labs Heart rate 69 /min 69 /min [facility] ([facility]) pt is here for a referral for PT due to neck, foot and back pain and talk about ways to quit smoking. Diastolic blood pressure 84 mm[Hg] 84 mm[Hg] [facility] ([facility]) pt is here for a referral for PT due to neck, foot and back pain and talk about ways to quit smoking. Systolic blood pressure 122 mm[Hg] 122 mm[Hg] [facility] pt is here for a referral for PT due to neck, foot and back pain and talk about ways to quit smoking. PhenX - pain, abdominal - type and 6 6 [facility] ([facility]) pt is here for a referral for PT due to neck, foot and back pain and talk about ways to quit smoking. Body surface area Derived from 2.14 m2 2.14 m2 [facility] ([facility]) pt is here for a referral for PT due to neck, foot and back pain and talk about ways to quit smoking. Body mass index (BMI) 39.1 kg/m2 39.1 kg/m2 [facility] ([place] [[facility]] [facility]) pt is here for a referral for PT due to neck, foot and back pain and talk about ways to quit smoking. Body weight 238 [lb_av] 238 [lb_av] [facility] ([facility]) pt is here for a referral for PT due to neck, foot and back pain and talk about ways to quit smoking. Body height 65.4 [in_us] 65.4 [in_us] [facility] ([facility]) pt is here for a referral for PT due to neck, foot and back pain and talk about ways to quit smoking. Body temperature 97.8 [degF] 97.8 [degF] [facility] ([facility]) pt is here for a referral for PT due to neck, foot and back pain and talk about ways to quit smoking. Respiratory rate 18 /min 18 /min [facility] ([facility]) pt is here for a referral for PT due to neck, foot and back pain and talk about ways to quit smoking. Body temperature 36.780671 [facility] 36.008993 Columb[facility] Respiratory rate 18 /min 18 /min [facility] Oxygen saturation in 100 % 100 % [facility] Arterial blood by Pulse C enter oximetry Heart rate 73 /min 73 /min [facility] Diastolic blood pressure 100 mm[Hg] 100 mm[Hg] [facility] Systolic blood pressure 153 mm[Hg] 153 mm[Hg] [facility] Body temperature 36.371759 [facility] 36.793067 Columb[facility] Respiratory rate 17 /min 17 /min [facility] Oxygen saturation in 99 % 99 % [facility] Arterial blood by Pulse C enter oximetry Heart rate 64 /min 64 /min [facility] Diastolic blood pressure 82 mm[Hg] 82 mm[Hg] [facility] Systolic blood pressure 135 mm[Hg] 135 mm[Hg] [facility] Body temperature 37.236873 [facility] 37.007799 Columb[facility] Respiratory rate 18 /min 18 /min [facility] Oxygen saturation in 100 % 100 % [facility] Arterial blood by Pulse C enter oximetry Heart rate 78 /min 78 /min [facility] Diastolic blood pressure 98 mm[Hg] 98 mm[Hg] [facility] Systolic blood pressure 139 mm[Hg] 139 mm[Hg] [facility] Body weight Measured 107.000726 kg 107.039073 k g [facility] Body temperature 36.427623 [facility] 36.371381 Columba [facility] Respiratory rate 16 /min 16 /min [facility] Oxygen saturation in 100 % 100 % [facility] Arterial blood by Pulse C enter oximetry Heart rate 72 /min 72 /min [facility] Body height 165.157008 cm 165.124401 cm [facility] Diastolic blood pressure 104 mm[Hg] 104 mm[Hg] [facility] Systolic blood pressure 151 mm[Hg] 151 mm[Hg] [facility] Body mass index (BMI) 39.2 kg/m2 39.2 kg/m2 [facility] [Ratio] Center Diastolic blood pressure 94 mm[Hg] 94 mm[Hg] eCW2 ([facility]) Systolic blood pressure 128 mm[Hg] 128 mm[Hg] e CW2 ([facility]) Body mass index (BMI) 37.12 kg/m2 37.12 kg/m2 e CW2 ([facility]) Body weight Measured 237 [lb_av] 237 [lb_av] eC W2 ([facility]) Body height 67 [in_us] 67 [in_us] eCW2 ([facility]) Heart rate 63 /min 63 /min [facility] ([facility]) Pt presents today referred by Kris avendano due to abnorrmal blood results Diastolic blood pressure 96 mm[Hg] 96 mm[Hg] [facility] ([facility]) Pt presents today referred by Kris avendano due to abnorrmal blood results Systolic blood pressure 135 mm[Hg] 135 mm[Hg] [facility] ([facility]) Pt presents today referred by Kris avendano due to abnorrmal blood results PhenX - pain, abdominal - type and 0 0 [facility] ([facility]) Pt presents today referred by Kris avendano due to abnorrmal blood results Body surface area Derived from 2.18 m2 2.18 m2 [facility] ([facility]) Pt presents today referred by Kris avendano due to abnorrmal blood results Body mass index (BMI) 40.9 kg/m2 40.9 kg/m2 [facility] ([place] [[facility]] [facility]) Pt presents today referred by Kris avendano due to abnorrmal blood results Body weight 249 [lb_av] 249 [lb_av] [facility] ([facility]) Pt presents today referred by Kris avendano due to abnorrmal blood results Body height 65.4 [in_us] 65.4 [in_us] [facility] ([facility]) Pt presents today referred by Kris avendano due to abnorrmal blood results Body temperature 97.5 [degF] 97.5 [degF] [place] [facility] ([facility]) Pt presents today referred by Kris avendano due to abnorrmal blood results Heart rate 88 /min 88 /min [facility] ([facility]) Pt here to go over test resultsLMP 9-18- 19 Diastolic blood pressure 100 mm[Hg] 100 mm[Hg] [facility] ([facility]) Pt here to go over test resultsLMP 9-18- 19 Systolic blood pressure 143 mm[Hg] 143 mm[Hg] [facility] ([facility]) Pt here to go over test resultsLMP 9-18- 19 PhenX - pain, abdominal - type and 0 0 [facility] ([facility]) Pt here to go over test resultsLMP -- 19 Body surface area Derived from 2.18 m2 2.18 m2 [facility] ([facility]) Pt here to go over test resultsLMP 9-18- 19 Body mass index (BMI) 40.8 kg/m2 40.8 kg/m2 [facility] ([place] [[facility]] [facility]) Pt here to go over test resultsLMP 9-18- 19 Body weight 248 [lb_av] 248 [lb_av] [facility] ([facility]) Pt here to go over test resultsLMP 9-18- 19 Body height 65.4 [in_us] 65.4 [in_us] [facility] ([facility]) Pt here to go over test resultsLMP 9-18- 19 Body temperature 97.5 [degF] 97.5 [degF] [facility] [facility] ([facility]) Pt here to go over test resultsLMP 9-18- 19 Body surface area Derived from 2.15 m2 2.15 m2 [facility] ([facility]) Pt presents today for labs results Body mass index (BMI) 39.8 kg/m2 39.8 kg/m2 [facility] ([place] [[facility]] [facility]) Pt presents today for labs results Body weight 242 [lb_av] 242 [lb_av] [facility] ([facility]) Pt presents today for labs results Body height 65.4 [in_us] 65.4 [in_us] [facility] ([facility]) Pt presents today for labs results Body temperature 98 [degF] 98 [degF] [facility] ([facility]) Pt presents today for labs results PhenX - pain, abdominal - type and 0 0 [facility] ([facility]) Pt presents today for labs results Heart rate 60 /min 60 /min [facility] ([facility]) Pt presents today for labs results Diastolic blood pressure 81 mm[Hg] 81 mm[Hg] [facility] ([facility]) Pt presents today for labs results Systolic blood pressure 112 mm[Hg] 112 mm[Hg] [facility] ([facility]) Pt presents today for labs results Heart rate 80 /min 80 /min [facility] ([facility]) Pt here for test results Diastolic blood pressure 103 mm[Hg] 103 mm[Hg] [facility] ([facility]) Pt here for test results Systolic blood pressure 143 mm[Hg] 143 mm[Hg] [facility] ([facility]) Pt here for test results PhenX - pain, abdominal - type and 0 0 [facility] ([facility]) Pt here for test results Body height 65.4 [in_us] 65.4 [in_us] [facility] ([facility]) Pt here for test results Body temperature 97.5 [degF] 97.5 [degF] [facility] ([facility]) Pt here for test results Body surface area Derived 2.18 m2 2.18 m2 [facility] ([facility]) Body mass index (BMI) 40.8 kg/m2 40.8 kg/m2 [facility] ([place] [Ratio] [facility]) Body weight 248 [lb_av] 248 [lb_av] [facility] ([facility]) Body height 65.4 [in_us] 65.4 [in_us] [facility] ([facility]) Heart rate 80 /min 80 /min [facility] ([facility]) Pt presenting for f/u. C/o throat irrita tion and nasal congestion x 1 day. Diastolic blood pressure 87 mm[Hg] 87 mm[Hg] [facility] ([facility]) Pt presenting for f/u. C/o throat irrita tion and nasal congestion x 1 day. Systolic blood pressure 125 mm[Hg] 125 mm[Hg] [facility] ([facility]) Pt presenting for f/u. C/o throat irrita tion and nasal congestion x 1 day. Body surface area Derived from 2.18 m2 2.18 m2 [facility] ([facility]) Pt presenting for f/u. C/o throat irrita tion and nasal congestion x 1 day. Body mass index (BMI) 40.8 kg/m2 40.8 kg/m2 [facility] ([place] [[facility]) Pt presenting for f/u. C/o throat irrita tion and nasal congestion x 1 day. Body weight 248.2 [lb_av] 248.2 [lb_av] [place] ([facility]) Pt presenting for f/u. C/o throat irrita tion and nasal congestion x 1 day. Body height 65.4 [in_us] 65.4 [in_us] [facility] ([facility]) Pt presenting for f/u. C/o throat irrita tion and nasal congestion x 1 day. Body temperature 97.9 [degF] 97.9 [degF] [facility] ([facility]) Pt presenting for f/u. C/o throat irrita tion and nasal congestion x 1 day. Respiratory rate 18 /min 18 /min [facility] ([facility]) Pt presenting for f/u. C/o throat irrita tion and nasal congestion x 1 day. PhenX - pain, abdominal - type and 10 1 0 [facility] ([facility]) pt is here due to throat pain, stuffy no se and lightheadedness since yesterday. 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 Pt also concerne d both breasts are still leaking milk.LMP 8-19 Heart rate 80 /min 80 /min [facility] ([facility]) Pt is here for follow up, and she needs to get a letter. Diastolic blood pressure 83 mm[Hg] 83 mm[Hg] HULL ([facility]) Pt is here for follow up, and she needs to get a letter. Systolic blood pressure 160 mm[Hg] 160 mm[Hg] G REENWAY ([facility]) Pt is here for follow up, and she needs to get a letter. PhenX - pain, abdominal - type and 0 0 HULL ([facility] intensity protocol [facility]) Pt is here for follow up, and she needs to get a letter. Body surface area Derived from 2.17 m2 2.17 m2 HULL ([facility]) Pt is here for follow up, and she needs to get a letter. Body mass index (BMI) 40.3 kg/m2 40.3 kg/m2 GRE ENWAY ([place] [facility]] [facility] Pt is here for follow up, and she needs to get a letter. Body weight 245 [lb_av] 245 [lb_av] HULL ( [facility]) Pt is here for follow up, and she needs to get a letter. Body height 65.4 [in_us] 65.4 [in_us] HULL ([facility]) Pt is here for follow up, and she needs to get a letter. Body temperature 80 [degF] 80 [degF] HULL ([facility]) Pt is here for follow up, and she needs to get a letter. Patient Treatment Plan of Care Planned Activity Planned Date Details Description Data Source (s) aripiprazole 1 MG/ML Oral 12/18/2019 NE XTGEN ([facility] 12:00:00 AM ED [facility] er) aripiprazole 1 MG/ML Oral 12/18/2019 NE XTGEN ([facility] 12:00:00 AM ED [facility] er) aripiprazole 1 MG/ML Oral 11/18/2019 NE XTGEN ([facility] 12:00:00 AM ED [facility] er) 1 ML paliperidone 10/21/2019 NEXTGEN ([facility] palmitate 156 MG/ML 12:00:00 AM [facility]) Prefilled Syringe [Invega] 1 ML paliperidone 10/21/2019 NEXTGEN ([facility] palmitate 156 MG/ML 12:00:00 AM [facility]) Prefilled Syringe [Invega] aripiprazole 1 MG/ML Oral 09/18/2019 NE XTGEN ([facility] 12:00:00 AM [facility] Medical Cent er) 1 ML paliperidone 09/18/2019 NEXTGEN ([facility] [place] palmitate 156 MG/ML 12:00:00 AM [facility]) Prefilled Syringe [Invega] Cholecalciferol 1000 UNT 09/02/2019 GRE ENWAY ([place] Oral Tablet 12:00:00 AM [facility]) MetroGel-Vaginal 0.75 % 08/06/2019 eCW2 (Planned 12:00:00 AM [facility] [employer]) Blood Pressure Kit Device 05/15/2019 GR EENWAY ([place] 12:00:00 AM [facility]) Cholecalciferol 1000 UNT 03/10/2019 GRE ENWAY ([place] Oral Tablet 12:00:00 AM [facility]) Ascorbic Acid 500 MG Oral 02/13/2019 GR EENWAY ([place] Tablet 12:00:00 AM [facility]) ferrous sulfate 325 MG 02/13/[address] ([place] Oral Tablet 12:00:00 AM [facility]) ferrous sulfate 325 MG 11/28/[address] ([place] Delayed Release Oral 12:00:00 AM [facility]) Ascorbic Acid 500 MG Oral 11/28/2018 GR EENWAY ([place] Tablet 12:00:00 AM [facility]) olanzapine 5 MG Oral 11/05/2018 NEXTGEN ([facility] Tablet [Zyprexa] 12:00:00 AM [facility]) Amitriptyline 06/21/2010 NEXTGEN ([facility] Hydrochloride 25 MG Oral 12:00:00 AM [facility]) Tablet Acetaminophen 250 MG / 06/21/2010 NEXTG EN ([facility] Aspirin 250 MG / Caffeine 12:00:00 AM [facility]) 65 MG Oral Tablet [Excedrin] Ibuprofen 600 mg Tab 05/17/2010 NEXTGEN ([facility] 12:00:00 AM [facility]) Zithromax Z-Toby 250 mg Tab 05/17/2010 N EXTGEN ([facility] 12:00:00 AM [facility])
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
--- NOTE | 2020-05-19 23:45 | PDOC ---
Attending Attestation - Resident Resident Name: Brayan Mcmillan - ED Attending Attestation I have performed the following: I have examined & evaluated the patient, The case was reviewed & discussed with the resident, I agree w/resident's findings & plan - HPI HPI: 05/20/20 00:47 see resident hpi - Physicial Exam PE: 05/20/20 00:48 see resident exam - Medical Decision Making 05/20/20 00:49 34-year-old female with history of menorrhagia complaining of weakness currently menstruating Patient is not , there is no acute anemia Exam consistent with active menses We will DC with outpatient PRODUCT SCIENTIST follow-up Discharge - Discharge Information Problems reviewed: Yes Clinical Impression/Diagnosis: Dysmenorrhea, unspecified - Follow up/Referral - Patient Discharge Instructions - Post Discharge Activity
[2020-05-20 00:12] LABS: BASO % 0.7 % (0-2.0); HEMATOCRIT 34.3 % (32.4-45.2); HEMOGLOBIN 11.6 GM/dL (10.7-15.3); LYMPH % 24.4 % (8-40); MCH 30.4 pg (25.7-33.7); MCHC 33.8 g/dl (32.0-36.0); MEAN CELL VOLUME 89.9 fl (80-96); MEAN PLT VOLUME 9.6 fl (7.5-11.1); MONO % 10.5 % (3.8-10.2); NEUT % 62.4 % (42.8-82.8); PLATELET COUNT 239 K/MM3 (134-434); RBC 3.82 M/mm3 (3.60-5.2); RDW 12.6 % (11.6-15.6); WHITE BLOOD COUNT 6.7 K/mm3 (4.0-10.0)
[2020-05-20 00:23] LABS: CHLORIDE 104 mmol/L (98-107); POTASSIUM 3.8 mmol/L (3.5-5.1); SODIUM 135 mmol/L (136-145)
[2020-05-20 00:25] LABS: CALCIUM 8.9 mg/dL (8.5-10.1)
[2020-05-20 00:26] LABS: ALBUMIN 3.5 g/dl (3.4-5.0); ANION GAP 6 MMOL/L (8-16); BLOOD UREA NITROGEN 6.3 mg/dL (7-18); CO2 25 mmol/L (21-32); GLUCOSE,RANDOM 81 mg/dL (74-106)
[2020-05-20 00:29] LABS: CREATININE 0.7 mg/dL (0.55-1.3); SGOT/AST 18 U/L (15-37); SGPT/ALT 20 U/L (13-61)
[2020-05-20 00:31] LABS: BILIRUBIN,TOTAL 0.4 mg/dL (0.2-1); TOT PROT 7.1 g/dl (6.4-8.2)
[2020-05-20 00:32] LABS: ALK PHOS 89 U/L (45-117)
== END 2020-05-20 01:05 ==
LOC: JER 23:02
DX: N92.0 Excessive and frequent menstruation with regular cycle (principal)
CPT/HCPCS: 36415; 80053; 84702; 84703; 85025; 86850; 86900; 86901; 99284-25

== ENCOUNTER 2020-07-13 18:59 | Emergency (ER) | payer OTHER ==
[2020-07-13 19:16] VITALS: BP 126/89; PULSE 70; TEMP 98.2; BMI 43.2
[2020-07-13 21:03] LABS: BASO % 0.6 % (0-2.0); EOS % 0.6 % (0-4.5); HEMATOCRIT 35.2 % (32.4-45.2); HEMOGLOBIN 11.7 GM/dL (10.7-15.3); LYMPH % 43.7 % (8-40); MCH 29.6 pg (25.7-33.7); MCHC 33.1 g/dl (32.0-36.0); MEAN CELL VOLUME 89.3 fl (80-96); MEAN PLT VOLUME 8.5 fl (7.5-11.1); MONO % 10.1 % (3.8-10.2); PLATELET COUNT 291 K/MM3 (134-434); RBC 3.94 M/mm3 (3.60-5.2); RDW 13.4 % (11.6-15.6)
[2020-07-13 21:22] LABS: POTASSIUM 3.6 mmol/L (3.5-5.1)
[2020-07-13 21:23] LABS: CALCIUM 8.8 mg/dL (8.5-10.1)
[2020-07-13 21:24] LABS: ALBUMIN 3.8 g/dl (3.4-5.0); BLOOD UREA NITROGEN 8.2 mg/dL (7-18)
[2020-07-13 21:27] LABS: CREATININE 0.7 mg/dL (0.55-1.3)
[2020-07-13 21:29] LABS: BILIRUBIN,TOTAL 0.3 mg/dL (0.2-1); TOT PROT 7.6 g/dl (6.4-8.2)
== END 2020-07-13 22:00 | disposition home or self-care (01) ==
LOC: JER 18:59
DX: F41.9 Anxiety disorder, unspecified (principal)
CPT/HCPCS: 36415; 80053; 85025; 93005; 93010; 99284-25

== ENCOUNTER 2021-01-30 18:02 | Emergency (ER) | payer OTHER ==
[2021-01-30 18:11] VITALS: BMI 47.0
[2021-01-30 20:20] LABS: BASO % 0.7 % (0-2.0); EOS % 0.9 % (0-4.5); HEMATOCRIT 37.9 % (32.4-45.2); LYMPH % 33.4 % (8-40); MCH 30.7 pg (25.7-33.7); MCHC 34.3 g/dl (32.0-36.0); MEAN CELL VOLUME 89.3 fl (80-96); MEAN PLT VOLUME 8.7 fl (7.5-11.1); MONO % 10.7 % (3.8-10.2); NEUT % 54.3 % (42.8-82.8); PLATELET COUNT 240 10^3/uL (134-434); RBC 4.24 M/mm3 (3.60-5.2); WHITE BLOOD COUNT 7.8 K/mm3 (4.0-10.0)
[2021-01-30] MEDS ORDERED: MAGNESIUM SULF 50% (8.12 MEQ/2 ML-1 GM VIAL) IVPB ONE (20:38)
[2021-01-30] MEDS ORDERED: LABETALOL HCL 5 MG/1 ML (100MG/20 ML VIAL) IVPUSH ONE (20:38)
[2021-01-30] MEDS ORDERED: LABETALOL HCL 5 MG/1 ML (100MG/20 ML VIAL) ONE (20:43)
[2021-01-30 20:46] LABS: CALCIUM 9.3 mg/dL (8.5-10.1)
[2021-01-30 20:47] LABS: ALBUMIN 3.2 g/dl (3.4-5.0); BLOOD UREA NITROGEN 6.7 mg/dL (7-18)
[2021-01-30 20:52] LABS: BILIRUBIN,TOTAL 0.2 mg/dL (0.2-1)
[2021-01-30 20:56] LABS: CREATININE 0.5 mg/dL (0.55-1.3)
[2021-01-30 21:17] LABS: INR 0.92 (0.83-1.09); PROTHROMBIN TIME (PATIENT) 11.2 SEC (9.7-13.0)
[2021-01-30 21:20] LABS: ACTIVATED PTT 25.3 SECONDS (25.2-36.5)
[2021-01-30 22:52] VITALS: TEMP 98.1
[2021-01-30 22:53] LABS: PH,URINE 5.5 (5.0-8.0); URINE APPEARANCE Clear; URINE BILIRUBIN Negative (NEGATIVE); URINE COLOR Yellow; URINE GLUCOSE (UA) Negative (NEGATIVE); URINE KETONE Negative (NEGATIVE); URINE LEUK ESTERASE Negative (NEGATIVE); URINE NITRITE Negative (NEGATIVE); URINE PROTEIN Negative (NEGATIVE); URINE UROBILINOGEN 0.2 mg/dL (0.2-1.0)
[2021-01-30 23:01] LABS: URINE AMPHETAMINES NEGATIVE (NEGATIVE)
[2021-01-30 23:02] LABS: METHADONE, UR NEGATIVE (NEGATIVE); OPIATES, URI NEGATIVE (NEGATIVE); PHENCYCLIDINE,URINE NEGATIVE (NEGATIVE); URINE BARBITURATES NEGATIVE (NEGATIVE)
[2021-01-30 23:06] LABS: COCAINE, UR NEGATIVE (NEGATIVE); URINE BENZODIAZEPINES NEGATIVE (NEGATIVE)
[2021-01-30 23:54] LABS: EPI CELLS 35.5 /uL (0-25.1); HYALINE CASTS 0.38 /uL (0-3.1); URINE RBC 4.5 /uL (0-23.9); URINE WBC 25.1 /uL (0-25.8)
[2021-01-30 23:55] LABS: URINE BACTERIA 476.2 /uL (0-1359)
[2021-01-31 00:08] VITALS: BP 128/76; PULSE 65
== END 2021-01-31 01:20 | disposition home or self-care (01) ==
LOC: JER 18:02
PROC: 3E033NZ Introduction of Analgesics, Hypnotics, Sedatives into Peripheral Vein, Percutaneous Approach (ICD-10-PCS; principal; 2021-01-30)
PROC: 3E033GC Introduction of Other Therapeutic Substance into Peripheral Vein, Percutaneous Approach (ICD-10-PCS; 2021-01-30)
DX: O14.92 Unspecified pre-eclampsia, second trimester (principal); O26.92 Pregnancy related conditions, unspecified, second trimester; Z3A.23 23 weeks gestation of pregnancy
CPT/HCPCS: 36415; 76817-TC; 76819-TC; 80053; 80307; 81003; 82570; 82977; 83615; 84156; 84550; 85025; 85384; 85610; 85730; 86850; 86900; 86901; 87086; 93005; 93010; 99285-25

== ENCOUNTER 2021-07-31 18:34 | Emergency (ER) | payer OTHER ==
[2021-07-31 19:13] VITALS: BP 174/88; PULSE 93; BMI 44.9
== END 2021-07-31 21:06 | disposition home or self-care (01) ==
LOC: JERFT 18:34
DX: L50.9 Urticaria, unspecified (principal)
CPT/HCPCS: 99283-25

== ENCOUNTER 2022-01-02 12:03 | Emergency (ER) | payer OTHER ==
[2022-01-02 12:46] VITALS: BP 121/72; PULSE 70; TEMP 98; BMI 38.2
[2022-01-02] MEDS ORDERED: ACETAMINOPHEN 1000 MG/100 ML BAG IVPB ONE (14:52)
[2022-01-02] MEDS ORDERED: SODIUM CHLORIDE 0.9% 500 ML INFUS.BAG IV ONE (14:52)
[2022-01-02] MEDS ORDERED: ACETAMINOPHEN INJECTION 100 ML IVPB ONE (15:12)
[2022-01-02] MEDS ORDERED: KETOROLAC TROMETHAMINE 15 MG/ML VIAL IVPUSH ONE (17:05)
[2022-01-02] MEDS ORDERED: KETOROLAC TROMETHAMINE 15 MG/ML VIAL ONE (17:54)
== END 2022-01-02 18:56 | disposition home or self-care (01) ==
LOC: JER 12:03
PROC: 3E0333Z Introduction of Anti-inflammatory into Peripheral Vein, Percutaneous Approach (ICD-10-PCS; principal; 2022-01-02)
PROC: 3E0333Z Introduction of Anti-inflammatory into Peripheral Vein, Percutaneous Approach (ICD-10-PCS; 2022-01-02)
DX: R51.9 Headache, unspecified (principal)
CPT/HCPCS: 99284-25

== ENCOUNTER 2022-11-16 12:15 | Emergency (ER) | payer OTHER ==
[2022-11-16 12:33] VITALS: BP 123/69; PULSE 87; RESP 17; TEMP 97.6; BMI 49.6
[2022-11-16 13:59] LABS: PH,URINE 5.5 (5.0-8.0); URINE APPEARANCE CLEAR; URINE BILIRUBIN NEGATIVE (NEGATIVE); URINE COLOR YELLOW; URINE GLUCOSE (UA) NEGATIVE (NEGATIVE); URINE KETONE TRACE (NEGATIVE); URINE LEUK ESTERASE NEGATIVE (NEGATIVE); URINE NITRITE NEGATIVE (NEGATIVE); URINE PROTEIN TRACE (NEGATIVE); URINE UROBILINOGEN 0.2 mg/dL (0.2-1.0)
== END 2022-11-16 15:53 | disposition home or self-care (01) ==
LOC: JER 12:15
DX: O23.591 Infection of other part of genital tract in pregnancy, first trimester (principal); B37.31 Acute candidiasis of vulva and vagina; Z3A.01 Less than 8 weeks gestation of pregnancy
CPT/HCPCS: 81003; 87081; 87086; 99283-25

== ENCOUNTER 2022-12-10 22:12 | Emergency (ER) | payer OTHER ==
[2022-12-10 22:23] VITALS: BP 163/86; PULSE 103; RESP 20; TEMP 97.9; BMI 48.2
[2022-12-10 22:58] LABS: BASO % 0.6 % (0-2.0); EOS % 0.4 % (0-4.5); HEMATOCRIT 26.6 % (32.4-45.2); HEMOGLOBIN 8.4 GM/dL (10.7-15.3); LYMPH % 30.4 % (8-40); MCH 21.9 pg (25.7-33.7); MCHC 31.6 g/dl (32.0-36.0); MEAN CELL VOLUME 69.4 fl (80-96); MEAN PLT VOLUME 8.2 fl (7.5-11.1); NEUT % 58.6 % (42.8-82.8); PLATELET COUNT 432 10^3/uL (134-434); RBC 3.84 M/mm3 (3.60-5.2); RDW 19.6 % (11.6-15.6); WHITE BLOOD COUNT 9.6 K/mm3 (4.0-10.0)
[2022-12-10 23:18] LABS: POTASSIUM 4.2 mmol/L (3.5-5.1)
[2022-12-10 23:20] LABS: BLOOD UREA NITROGEN 8.6 mg/dL (7-18); CALCIUM 9.2 mg/dL (8.5-10.1)
[2022-12-10 23:21] LABS: ALBUMIN 3.4 g/dl (3.4-5.0)
[2022-12-10 23:24] LABS: CREATININE 0.8 mg/dL (0.55-1.3)
[2022-12-10 23:25] LABS: BILIRUBIN,TOTAL 0.2 mg/dL (0.2-1); TOT PROT 7.9 g/dl (6.4-8.2)
== END 2022-12-11 01:23 | disposition home or self-care (01) ==
LOC: JER 22:12
DX: O20.9 Hemorrhage in early pregnancy, unspecified (principal); Z3A.09 9 weeks gestation of pregnancy
CPT/HCPCS: 36415; 76817-TC; 80053; 84702; 85025; 86850; 86900; 86901; 99284-25

== ENCOUNTER 2023-09-05 16:43 | Emergency (ER) | payer OTHER ==
[2023-09-05 16:48] VITALS: BP 144/99; PULSE 104; RESP 18; TEMP 97.3; BMI 44.9
[2023-09-05] MEDS ORDERED: DEXAMETHASONE SOD PHOSPHATE 10 MG/1 ML VIAL ONE (19:25)
[2023-09-05] MEDS ORDERED: KETOROLAC TROMETHAMINE 30 MG/1 ML VIAL ONE (19:25)
[2023-09-05] MEDS: DEXAMETHASONE SOD PHOSPHATE 10 MG/1 ML VIAL IM ONE (19:29)
[2023-09-05] MEDS: KETOROLAC TROMETHAMINE 30 MG/1 ML VIAL IM ONE (19:29)
[2023-09-05 19:52] LABS: THROAT:GRP A STREP NOT DETECTED (NOTDETECTED)
== END 2023-09-05 21:25 | disposition home or self-care (01) ==
LOC: JERFT 16:43
PROC: 3E023GC Introduction of Other Therapeutic Substance into Muscle, Percutaneous Approach (ICD-10-PCS; principal; 2023-09-05)
PROC: 3E0233Z Introduction of Anti-inflammatory into Muscle, Percutaneous Approach (ICD-10-PCS; 2023-09-05)
DX: J02.9 Acute pharyngitis, unspecified (principal); J06.9 Acute upper respiratory infection, unspecified; J03.90 Acute tonsillitis, unspecified; Z20.822 Contact with and (suspected) exposure to COVID-19
CPT/HCPCS: 0241U-QW; 87651; 99284-25; J1100

== ENCOUNTER → 2024-09-17 | Day surgery (SDC) | payer OTHER ==
[2024-09-12 15:17] VITALS: BMI 36.6
[~2024-09-17] MED LIST: DEXAMETHASONE SOD PHOSPHATE 4 MG/1 ML VIAL ONE; KETOROLAC TROMETHAMINE 30 MG/1 ML VIAL ONE; LACTATED RINGERS SOLUTION 1,000 ML IV SCH; MIDAZOLAM HCL 2 MG/2 ML SINGLE DOSE VIAL ONE; ONDANSETRON 4 MG/2 ML VIAL IVPUSH PRN; ONDANSETRON 4 MG/2 ML VIAL ONE; PROPOFOL 20 ML ONE; ceFAZolin SODIUM 1 GM VIAL ONE; oxyCODONE HCL 5 MG TABLET PO PRN
[2024-09-17] MEDS: ceFAZolin SODIUM 1 GM VIAL IVPB ONE (15:32)
[2024-09-17 17:07] VITALS: BP 128/95; PULSE 77; RESP 16; TEMP 97.3
== END | disposition home or self-care (01) ==
LOC: JASU-SURG 05:23
PROVIDERS: ATTEND Obstetrics & Gynecology
PROC: 0UB98ZX Excision of Uterus, Via Natural or Artificial Opening Endoscopic, Diagnostic (ICD-10-PCS; principal; 2024-09-17 14:00)
DX: N92.0 Excessive and frequent menstruation with regular cycle (principal)
CPT/HCPCS: 81025; 88305-TC; 94760